=== PATIENT | female | born 1940 | race Caucasian/White ===

== ENCOUNTER → 2017-02-28 | Outpatient (CLI) | payer MEDICARE ==
[~2017-02-28] MED LIST: AMLO5 PO; BENA40TA PO; BUPR300T PO; CALC600T64 PO; CYCL1TAB29 PO; DENO60P SQ; DICY10CA12 PO; ESTR.625 PO; FLUT50SP EACH NARE; GABA100C4 PO; GETGO ROLLING W1 MI1; LOMO2.5T PO; METO-338 PO; METO50TA11 PO; PERC10TA27 PO; PROC10TA PO; RABE1TAB PO; TEMA30CA PO; VITA100064 PO; VOLT1GEL4
[2017-02-28 14:00] LABS: AUTOMATED NEUTROPHIL # 3.5 TH/MM3 (1.8-7.7); BASOPHIL # 0.1 TH/MM3 (0-0.2); BASOPHIL % 2.2 % (0.0-2.0); EOSINOPHIL # 0.1 TH/MM3 (0-0.4); EOSINOPHIL % 1.1 % (0.0-4.0); HEMATOCRIT 37.2 % (35.0-46.0); HEMO FLAGS DIFF FINAL; LYMPH % 34.3 % (9.0-44.0); LYMPHOCYTE # 2.2 TH/MM3 (1.0-4.8); MEAN CELL VOLUME 62.8 FL (80.0-100.0); MEAN CORPUSCULAR HEMOGLOBIN 19.3 PG (27.0-34.0); MEAN CORPUSCULAR HGB CONC 30.8 % (32.0-36.0); MONO % 8.6 % (0.0-8.0); NEUT % 53.8 % (16.0-70.0); PLATELET COUNT 300 TH/MM3 (150-450); RED BLOOD COUNT 5.92 MIL/MM3 (4.00-5.30); RED CELL DISTRIBUTION WIDTH 15.8 % (11.6-17.2); WHITE BLOOD COUNT 6.4 TH/MM3 (4.0-11.0)
[2017-02-28 14:06] LABS: BACTERIA, URINE OCC /hpf; BLOOD, URINE NEG (NEG); COMMENT (UR) CULT NOT INDICATED; CULTURE IF INDICATED CULT NOT INDICATED; GLUCOSE,URINE NEG (NEG); KETONE, URINE NEG (NEG); NITRITE,URINE NEG (NEG); SQUAMOUS EPITHELIAL CELL URINE <1 /hpf (0-5); URINE COLOR YELLOW (YELLW/STRAW)
[2017-02-28 14:11] LABS: APTT (PATIENT) 30.9 SEC (24.3-30.1); INTERNATIONAL NORMALIZED RATIO 0.9 RATIO
[2017-02-28 14:23] LABS: ALT (GPT) 21 U/L (10-53); ANION GAP 7 MEQ/L (5-15); AST (GOT) 13 U/L (15-37); BICARBONATE 28.1 MEQ/L (21.0-32.0); BLOOD UREA NITROGEN 16 MG/DL (7-18); CHLORIDE 105 MEQ/L (98-107); GLOMERULAR FILTRATION RATE 71 ML/MIN (>89); GLUCOSE,FASTING 84 MG/DL (74-99); POTASSIUM 3.8 MEQ/L (3.5-5.1); SODIUM (NA) 140 MEQ/L (136-145)
[2017-02-28 14:25] LABS: ALKALINE PHOSPHATASE 43 U/L (45-117); TOTAL BILIRUBIN ADULT 0.5 MG/DL (0.2-1.0)
--- NOTE | 2017-02-28 16:28 | RADRPT ---
EXAM DATE/TIME: 02/28/2017 14:01 [facility] COMPARISON: No previous studies available for comparison. INDICATIONS : Evaluate for pneumonia, pneumothorax, or communicable disease. Pre-op Lumbar surgery 03/07/2017. MEDICAL HISTORY : None. SURGICAL HISTORY : None. ENCOUNTER: Initial ACUITY: 1 day PAIN SCORE: 0/10 LOCATION: Bilateral chest FINDINGS: PA and lateral views of the chest demonstrate the lungs to be symmetrically aerated without evidence of mass, infiltrate or effusion. The cardiomediastinal contours are unremarkable. Degenerative beck es and scoliosis of the thoracolumbar spine are noted. CONCLUSION: No acute cardiopulmonary disease. Shravan Lamb MD on February 28, 2017 at 16:25 Board Certified Radiologist. This report was verified electronically.
== END ==
LOC: CPRE 13:02
PROVIDERS: ATTEND Neurological Surgery
DX: Z01.812 Encounter for preprocedural laboratory examination (principal); M51.36 Other intervertebral disc degeneration, lumbar region; M51.16 Intervertebral disc disorders with radiculopathy, lumbar region; M99.83 Other biomechanical lesions of lumbar region; M43.16 Spondylolisthesis, lumbar region; Z79.01 Long term (current) use of anticoagulants
CPT/HCPCS: 36415; 71020; 80053; 81001; 85025; 85610; 85730

== ENCOUNTER 2017-03-07 08:30 | Inpatient (IN) | payer MEDICARE ==
[~2017-03-07] VITALS: Ht 156.2 cm; Wt 66.5 kg
[~2017-03-07 08:30] MED LIST changes: -AMLO5 PO; -CYCL1TAB29 PO; -GABA100C4 PO; -GETGO ROLLING W1 MI1; -METO-338 PO; -VOLT1GEL4
[2017-03-13] MEDS ORDERED: VANCOMYCIN HCL 1000 MG ON-CALL/NS 250 ML IV SCH ×2 (06:45)
[2017-03-13] MEDS ORDERED: INSULIN HUMAN REGULAR 1,000 UNITS/10 ML VIAL SQ PRN (07:00)
[2017-03-13] MEDS ORDERED: CHLORHEXIDINE GLUCONATE 2 % 1 PACK (2 CLOTHS) TOPICAL PRN (07:00)
[2017-03-13] MEDS ORDERED: SODIUM CHLOR 0.9% 1000 ML INJ 1,000 ML IV SCH (07:00)
[2017-03-13] MEDS ORDERED: SODIUM CHLORID 0.9% 500 ML IV PRN (07:00)
[2017-03-13] MEDS ORDERED: POVIDONE IODINE 5% (ANTISEPSIS KIT) 4 APPLICATIONS EACH NARE PRN (07:00)
[2017-03-13] MEDS ORDERED: LACTATED RINGER'S 1000 ML IV PRN (07:00)
[2017-03-13] MEDS ORDERED: METOPROLOL TARTRATE 25 MG TAB PO PRN (07:00)
[2017-03-13] MEDS ORDERED: THROMBIN (TOPICAL) 5,000 UNIT VIAL ONE (07:13)
[2017-03-13] MEDS ORDERED: GELFOAM SIZE 100 ONE (07:13)
[2017-03-13] MEDS ORDERED: VANCOMYCIN HCL 1000 MG VIAL ONE (07:13)
[2017-03-13] MEDS ORDERED: BUPIVACAINE/EPINEPHRINE 0.5% PF 30 ML VIAL ONE (07:13)
[2017-03-13] MEDS ORDERED: ACETAMINOPHEN 1000 MG/100 ML 100 ML IV ONE (08:07)
[2017-03-13] MEDS ORDERED: DO NOT ADM ANY ANTICOAGULANT DRUGS PRN ×2 (11:50)
--- NOTE | 2017-03-13 11:59 | RADRPT ---
EXAM DATE/TIME: 03/13/2017 09:03 [facility] COMPARISON: No previous studies available for comparison. INDICATIONS : Post-op L4-L5 posterior lumbar fusion. MEDICAL HISTORY : None. SURGICAL HISTORY : None. ENCOUNTER: Initial ACUITY: 1 day PAIN SCORE: Non-responsive. LOCATION: Lumbar spine. CONCLUSION: Lateral fluoroscopic images during placement of rods and screws at L4-5 on the left. Intervertebral d isc device also seen L4-L5. Selvin Menezes MD on March 13, 2017 at 11:57 Board Certified Radiologist. This report was verified electronically.
--- NOTE | 2017-03-13 12:00 | RADRPT ---
EXAM DATE/TIME: 03/13/2017 09:03 [facility] COMPARISON: No previous studies available for comparison. INDICATIONS : L4-L5 posterior lumbar fusion. Level localization. MEDICAL HISTORY : None. SURGICAL HISTORY : None. ENCOUNTER: Initial ACUITY: 1 day PAIN SCORE: Non-responsive. LOCATION: Lumbar spine. CONCLUSION: Lateral fluoroscopic images demonstrates temporary probes posterior to L4 and L5 vertebral bodies. Selvin Menezes MD on March 13, 2017 at 11:58 Board Certified Radiologist. This report was verified electronically.
[2017-03-13] MEDS ORDERED: CYCLOBENZAPRINE HCL 10 MG TAB PO PRN (12:15)
[2017-03-13] MEDS ORDERED: diphenhydrAMINE HCL 50 MG/ML VIAL IV PUSH PRN (12:15)
[2017-03-13] MEDS ORDERED: RESP: ALBUTEROL 2.5 MG/3 ML NEB (PRN) NEB (12:15)
[2017-03-13] MEDS ORDERED: NALOXONE HCL 0.4 MG/ML AMP IV PUSH PRN (12:15)
[2017-03-13] MEDS ORDERED: MAGNESIUM HYDROXIDE SUSP 30 ML CUP PO PRN (12:15)
[2017-03-13] MEDS ORDERED: BISACODYL 10 MG SUPP RECTAL PRN (12:15)
[2017-03-13] MEDS ORDERED: PROMETHAZINE INJ 25 MG/ML VIAL IM PRN (12:15)
[2017-03-13] MEDS ORDERED: ALUMINUM/MAGNESIUM/SIMETH 30 ML CUP PO PRN (12:15)
[2017-03-13] MEDS ORDERED: MENTHOL LOZENGE BUCCAL PRN (12:15)
[2017-03-13] MEDS ORDERED: MAGNESIUM SULFATE INJ 2 GM in SODIUM CHLORIDE 0.9% INJ 100 ML IV PRN (12:15)
[2017-03-13] MEDS ORDERED: POTASSIUM CHLOR 20 MEQ PREMIX 100 ML IV PRN (12:15)
[2017-03-13] MEDS ORDERED: ACETAMINOPHEN 325 MG TAB PO PRN (12:15)
[2017-03-13] MEDS ORDERED: TEMAZEPAM 15 MG CAP PO PRN (12:15)
[2017-03-13] MEDS ORDERED: DICYCLOMINE HCL 10 MG CAP PO PRN (12:15)
[2017-03-13] MEDS ORDERED: SODIUM CHLORIDE 0.9% FLUSH 10 ML FLUSH IV FLUSH PRN (12:15)
--- NOTE | 2017-03-13 12:29 | PD.OP ---
cc: Balbir Gillette MD Operative Report Date of Surgery: Mar 13, 2017 Preoperative Diagnosis: Intractable low back pain with radiculopathy; severe L4-5 degenerative disc disease with disc protrusion and facet hypertrophy with a grade 1 spondylolisthesis Postoperative Diagnosis: Same Procedure: Lumbar L4-5 transforaminal interbody fusion; L4-5 decompressive laminectomy; L4- 5 pedicle screw fixation; L4-5 interbody cage placement; microsurgical technique Anesthesia: Gen. endotracheal by Kiran Carreon Surgeon: Chucho Osorio M.D. Drill Sharpener Operator(s): Tere Prabhakar Operation and Findings: Following initiation of general endotracheal anesthesia, the patient had a Chavez catheter placed along with sequential compression devices. A gram of vancomycin was administered intravenously and she was turned in a prone position on a James frame, on a Kuldeep table, and all pressure points adequately padded. The lumbosacral region was then prepped with Chloraprep and sterilely draped with Ioban along the usual sterile draping. A left paraspinal skin incision was then made extending from the L4-L5 level after infiltrating the skin with 0.5% Marcaine with epinephrine solution extending down through the fascia. The muscle fibers were split using avascular fatty plane and detached from the underlying facets, transverse process and lateral portion of lamina on the right side and a self-retaining retractor used for exposure. Intraoperative fluoroscopy was also used for level of confirmation along with microscope magnification for further dissection. There was significant facet and ligamentum flavum hypertrophy noted at the L4-5 levels. Left L4-5 facet was resected with a drill bit along with the lamina and there was severe foraminal and lateral recess stenosis from hypertrophied ligamentum flavum and facet which were decompressed bilaterally through the unilateral approach. There was significant disc height collapse along with disc protrusion and spondylolisthesis also leading to the foraminal stenosis. Epidural hemostasis was achieved with bipolar cautery and Gelfoam with thrombin. Subsequently entered into the disc space at the L4-5 level with a #15 blade and neris were used for discectomy. I then placed PEEK cage packed with local autograft bone and more local autograft bone was packed adjacent to the cage in interspace for added interbody fusion. With placement of the cage, I was able to distract the interspace and opened up the foramen further bilaterally. Subsequently in order to facilitate the fusion and provide stabilization, pedicle screw fixation was undertaken using Moosic spine screws on entry point at the left L4 -5 levels at the junction of the transverse process and facet. Subsequently using AP and lateral fluoroscopy tap and screw placement. The screws were then connected with a mayank and locked in place with caps. The construct appeared very secure at this point. The area was then copiously irrigated with Vancomycin solution and powder. The retractors were removed and the bipolar cautery used for hemostasis. The muscle fascia was then approximated using 2-0 Vicryl interrupted stitches and then 3-0 Vicryl subcuticular stitches also placed in interrupted fashion. The final skin closure was completed with Mastisol and Steri-Strips. A sterile dressing was then applied. The patient then turned in supine position, extubated and taken to recovery room. There were no intraoperative complications. All sponge and needle counts were correct at the end of procedure. Estimated blood loss about 50 ml. Chucho Osorio MD Mar 13, 2017 12:29
[2017-03-13] MEDS: MORPHINE SULFATE 30 MG/30 ML PCA IV SCH (12:37)
[2017-03-13] MEDS: NS + KCL 20 MEQ INJ 1,000 ML IV SCH (12:38)
[2017-03-13 12:52] LABS: HEMATOCRIT 33.3 % (35.0-46.0); MEAN CELL VOLUME 62.3 FL (80.0-100.0); MEAN CORPUSCULAR HGB CONC 32.1 % (32.0-36.0); PLATELET COUNT 227 TH/MM3 (150-450); RED BLOOD COUNT 5.35 MIL/MM3 (4.00-5.30); RED CELL DISTRIBUTION WIDTH 15.8 % (11.6-17.2); REVIEW FLAG FINAL; WHITE BLOOD COUNT 5.5 TH/MM3 (4.0-11.0)
[2017-03-13] MEDS ORDERED: CALCIUM GLUCONATE INJ 1 GM in SODIUM CHLORIDE 0.9% INJ 100 ML IV PRN (13:00)
[2017-03-13] MEDS ORDERED: NEOSTIGMINE 3 MG/3 ML SYR IV ONE (13:10)
[2017-03-13] MEDS ORDERED: MORPHINE SULFATE 4 MG/ML INJ IV ONE (13:10)
[2017-03-13] MEDS ORDERED: ROCURONIUM INJ 50 MG/5 ML SYRINGE IV PUSH ONE (13:10)
[2017-03-13] MEDS ORDERED: LACTATED RINGER'S 1000 ML INJ 1,000 ML IV ONE (13:10)
[2017-03-13] MEDS ORDERED: MIDAZOLAM HCL 2 MG/2 ML VIAL IV ONE (13:10)
[2017-03-13] MEDS ORDERED: ONDANSETRON HCL 4 MG/2 ML VIAL IV PUSH ONE (13:10)
[2017-03-13] MEDS ORDERED: LIDOCAINE HCL 1% PF 5 ML AMPULE OTHER ONE (13:10)
[2017-03-13] MEDS ORDERED: GLYCOPYRROLATE 1 MG/5 ML SYRINGE IV PUSH ONE (13:10)
[2017-03-13] MEDS ORDERED: DEXAMETHASONE SOD PHOS 4 MG/ML VIAL IV ONE (13:10)
[2017-03-13] MEDS ORDERED: PROPOFOL 200 MG/20 ML AMP IV ONE (13:10)
[2017-03-13 13:21] LABS: BICARBONATE 30.3 MEQ/L (21.0-32.0)
[2017-03-13] MEDS ORDERED: *LABETALOL HCL 100 MG/20 ML VIAL PERIprocedural Use ONLY ONE (13:29)
[2017-03-13 14:15] VITALS: BP 138/64; PULSE 82; RESP 16; TEMP 98.3; O2SAT 95
[2017-03-13] MEDS: PCA - TOTAL MG MORPHINE DELIVERED PER SHIFT SCH ×2 (15:09→22:00)
[2017-03-13] MEDS: oxyCODONE/ACETAMINOPHEN 10 MG/325 MG TAB PO PRN (18:12)
[2017-03-13] MEDS: VANCOMYCIN INJ 1,000 MG in SODIUM CHLOR 0.9% 250 ML INJ 250 ML IV SCH (18:58)
[2017-03-13 20:30] VITALS: BP 110/57; PULSE 96; RESP 16; TEMP 98.3; O2SAT 96
[2017-03-13] MEDS: SODIUM CHLORIDE 0.9% FLUSH 10 ML FLUSH IV FLUSH SCH (21:00)
[2017-03-13] MEDS: DOCUSATE SODIUM 100 MG CAP PO SCH ×2 (21:00→22:32)
[2017-03-13] MEDS: FLUTICASONE PROPIONATE 50 MCG/ACT 16 GM NASAL SPRAY EACH NARE SCH (21:00)
[2017-03-13] MEDS: METOPROLOL SUCCINATE 50 MG EXTENDED RELEASE TAB PO SCH (22:32)
[2017-03-13 23:57] VITALS: BP 112/59; PULSE 86; RESP 16; TEMP 98.7; O2SAT 96
[2017-03-14] MEDS: NS + KCL 20 MEQ INJ 1,000 ML IV SCH (00:39)
[2017-03-14] MEDS: MORPHINE SULFATE 30 MG/30 ML PCA IV SCH (03:49)
[2017-03-14 04:00] VITALS: BP 131/62; PULSE 77; RESP 18; TEMP 98.9; O2SAT 94
[2017-03-14] MEDS: PCA - TOTAL MG MORPHINE DELIVERED PER SHIFT SCH ×2 (06:00→14:00)
[2017-03-14] MEDS: VANCOMYCIN INJ 1,000 MG in SODIUM CHLOR 0.9% 250 ML INJ 250 ML IV SCH (06:02)
[2017-03-14 08:49] VITALS: BP 125/67; PULSE 76; RESP 20; TEMP 99.3; O2SAT 90
[2017-03-14] MEDS ORDERED: buPROPion HCL 150 MG EXTENDED RELEASE TAB PO SCH (09:00)
--- NOTE | 2017-03-14 09:05 | HHI.NSPN ---
(Selvin Resendiz) History Chief Complaint: Incisional back pain radiating into the left lateral leg. (Selvin Resendiz) Interval History 03/14/17: Pt s/p L4/L5 TLIF with cage and pedicle screw fixation on 03/13/17. Complains of incisional back pain controlled with GOLF COURSE KEEPER. Pt with some pain radiating into the left lateral leg to the ankle. Pt drinking water well. Looking forward to PT today. (Selvin Resendiz) Review of Systems General: Negative for: fever, chills, insomnia Respiratory: Negative for: shortness of breath, cough, sputum Cardiovascular: Negative for: chest pain Gastrointestinal: Negative for: nausea, vomitting, diarrhea, constipation ( Selvin Resendiz) Exam Results Vital Signs Date Time Temp Pulse Resp B/P (MAP) Pulse Ox O2 Delivery O2 Flow Rate FiO2 03/14/17 08:49 99.3 76 20 125/67 (86) 90 03/13/17 21:59 Nasal Cannula 2.00 Intake and Output 03/14/17 03/14/17 03/15/17 08:00 16:00 00:00 Intake Total 250 ml 1427 ml Balance 250 ml 1427 ml (Selvin Resendiz) Physical Examination Resp: CTA bilaterally Heart: NSR no murmurs Abd: Soft positive bs Skin: Pt log rolled. Incision clean and dry. No signs of infection or complication. New bandage placed. Muscle: Moves LEs with good strength. Neuro: Pt awake and alert. Follows commands well. Speech clear and appropriate. (Selvin Resendiz) Lab, Micro, Other Results Last Impressions Lumbar Spine X-Ray 03/13/17 0000 Signed Impressions: Service Date/Time: Monday, March 13, 2017 09:03 - CONCLUSION: Lateral fluoroscopic images during placement of rods and screws at L4-5 on the left. Intervertebral disc device also seen L4-L5. Selvin Menezes MD Laboratory Tests Test 03/13/17 12:42 White Blood Count 5.5 TH/MM3 Red Blood Count 5.35 MIL/MM3 Hemoglobin 10.7 GM/DL Hematocrit 33.3 % Mean Corpuscular Volume 62.3 FL Mean Corpuscular Hemoglobin 20.0 PG Mean Corpuscular Hemoglobin Concent 32.1 % Red Cell Distribution Width 15.8 % Platelet Count 227 TH/MM3 Mean Platelet Volume 7.8 FL Blood Urea Nitrogen 14 MG/DL Creatinine 0.83 MG/DL Random Glucose 106 MG/DL Calcium Level 8.6 MG/DL Sodium Level 142 MEQ/L Potassium Level 4.0 MEQ/L Chloride Level 107 MEQ/L Carbon Dioxide Level 30.3 MEQ/L Anion Gap 5 MEQ/L Estimat Glomerular Filtration Rate 67 ML/MIN 03/14/17 03/14/17 03/15/17 15:00 23:00 07:00 Intake Total 1677 ml Balance 1677 ml IV Total 1677 ml (Selvin Resendiz) Medical Decision Making Impression and Plan A: 76 y/o FM s/p L4/L5 TLIF with cage and pedicle screw fixation. P: Continue with pain control with GOLF COURSE KEEPER Decrease IVF. PT (Selvin Resendiz) Attending Statement The exam, history, and the medical decision-making described in the above note were completed with the assistance of the mid-level provider. I reviewed and agree with the findings presented. I attest that I had a [id number] encounter with the patient on the same day, and personally performed and documented my assessment and findings in the medical record. She has been unable to void since Chavez was removed this morning and we'll replace the Chavez. Pain controlled with GOLF COURSE KEEPER and continue increasing activity status as tolerated. (Chucho Osorio MD) Selvin Resendiz Mar 14, 2017 09:05 Chucho Osorio MD Mar 14, 2017 16:24
[2017-03-14] MEDS: FLUTICASONE PROPIONATE 50 MCG/ACT 16 GM NASAL SPRAY EACH NARE SCH ×2 (09:43→23:08)
[2017-03-14] MEDS: CALCIUM/VITAMIN D 250 MG/125 U TAB PO SCH (09:44)
[2017-03-14] MEDS: PANTOPRAZOLE SOD 40 MG DELAYED RELEASE TAB PO SCH (09:44)
[2017-03-14] MEDS: DOCUSATE SODIUM 100 MG CAP PO SCH ×2 (09:45→21:00)
[2017-03-14] MEDS: buPROPion HCL 150 MG SUSTAINED RELEASE TAB PO SCH ×2 (09:45→23:05)
[2017-03-14] MEDS: LISINOPRIL 20 MG TAB PO SCH (09:45)
[2017-03-14] MEDS: SODIUM CHLORIDE 0.9% FLUSH 10 ML FLUSH IV FLUSH SCH ×2 (09:46→21:00)
[2017-03-14] MEDS: oxyCODONE/ACETAMINOPHEN 10 MG/325 MG TAB PO PRN ×3 (09:46→23:07)
[2017-03-14] MEDS: CHOLECALCIFEROL (VIT D3) 1000 UNIT TAB PO SCH (09:51)
[2017-03-14 12:12] VITALS: BP 110/66; PULSE 82; RESP 20; TEMP 98.2; O2SAT 98
[2017-03-14] MEDS: ONDANSETRON HCL 4 MG/2 ML VIAL IV PRN (14:33)
[2017-03-14 16:19] VITALS: BP 136/67; PULSE 74; RESP 20; TEMP 99; O2SAT 94
[2017-03-14 20:00] VITALS: BP 186/89; PULSE 96; RESP 20; TEMP 97.3; O2SAT 94
[2017-03-14 20:09] VITALS: O2SAT 94
[2017-03-14] MEDS: METOPROLOL SUCCINATE 50 MG EXTENDED RELEASE TAB PO SCH (23:05)
[2017-03-15] VITALS (8 sets, daily range): BP systolic 135–180; BP diastolic 61–83; PULSE 78–95; RESP 17–20; TEMP 98.7–100.2; O2SAT 90–98
[2017-03-15] MEDS: PCA - TOTAL MG MORPHINE DELIVERED PER SHIFT SCH (06:00)
[2017-03-15] MEDS: NS + KCL 20 MEQ INJ 1,000 ML IV SCH (06:46)
[2017-03-15] MEDS ORDERED: MORPHINE SULFATE 4 MG/ML INJ IV PUSH PRN (08:45)
[2017-03-15] MEDS: SODIUM CHLORIDE 0.9% FLUSH 10 ML FLUSH IV FLUSH SCH ×2 (09:00→23:16)
[2017-03-15] MEDS: ONDANSETRON HCL 4 MG/2 ML VIAL IV PRN (09:40)
[2017-03-15] MEDS: LISINOPRIL 20 MG TAB PO SCH (09:41)
[2017-03-15] MEDS: CALCIUM/VITAMIN D 250 MG/125 U TAB PO SCH (09:41)
[2017-03-15] MEDS: DOCUSATE SODIUM 100 MG CAP PO SCH ×2 (09:41→21:00)
[2017-03-15] MEDS: PANTOPRAZOLE SOD 40 MG DELAYED RELEASE TAB PO SCH (09:41)
[2017-03-15] MEDS: buPROPion HCL 150 MG SUSTAINED RELEASE TAB PO SCH ×2 (09:41→23:15)
[2017-03-15] MEDS: CHOLECALCIFEROL (VIT D3) 1000 UNIT TAB PO SCH (09:41)
[2017-03-15] MEDS: FLUTICASONE PROPIONATE 50 MCG/ACT 16 GM NASAL SPRAY EACH NARE SCH ×2 (09:43→23:16)
--- NOTE | 2017-03-15 09:46 | HHI.NSPN ---
(Selvin Resendiz) History Chief Complaint: Incisional back pain radiating into the left lateral leg. (Selvin Resendiz) Interval History 03/14/17: Pt s/p L4/L5 TLIF with cage and pedicle screw fixation on 03/13/17. Complains of incisional back pain controlled with FREEDOM OF INFORMATION OFFICER. Pt with some pain radiating into the left lateral leg to the ankle. Pt drinking water well. Looking forward to PT today. 03/15/17: Patient complains of incisional pain and pain in her left leg. She states that she has pain mostly in the lateral aspect but is now having pain in the posterior aspect also. Her Chavez catheter was placed back in secondary to her being unable to void. She states that the Percocet causing nausea and the FREEDOM OF INFORMATION OFFICER does not. She is trying to use antiemetics to help with her nausea. (Slevin Resendiz) Review of Systems General: Negative for: fever, chills, insomnia Respiratory: Negative for: shortness of breath, cough, sputum Cardiovascular: Negative for: chest pain Gastrointestinal: Positive for: nausea (from Percocet.), Negative for: vomitting, diarrhea, constipation (Selvin Resendiz) Exam Results Vital Signs Date Time Temp Pulse Resp B/P (MAP) Pulse Ox O2 Delivery O2 Flow Rate FiO2 03/15/17 08:48 98 03/15/17 07:30 99.0 80 20 148/73 (98) 03/14/17 20:09 21 03/13/17 21:59 Nasal Cannula 2.00 Intake and Output 03/15/17 03/15/17 03/16/17 08:00 16:00 00:00 Intake Total 240 ml Output Total 1100 ml Balance -860 ml (Selvin Resendiz) Physical Examination Resp: CTA bilaterally Heart: NSR no murmurs Abd: Soft positive bs Skin: No cyanosis or erythema. Muscle: Moves LEs with good strength. Neuro: Pt awake and alert. Follows commands well. Speech clear and appropriate. (Selvin Resendiz) Lab, Micro, Other Results Last Impressions Lumbar Spine X-Ray 03/13/17 0000 Signed Impressions: Service Date/Time: Monday, March 13, 2017 09:03 - CONCLUSION: Lateral fluoroscopic images during placement of rods and screws at L4-5 on the left. Intervertebral disc device also seen L4-L5. Selvin Menezes MD (Selvin Resendiz) Medical Decision Making Impression and Plan A: 76 y/o FM s/p L4/L5 TLIF with cage and pedicle screw fixation. P: Continue with pain control with FREEDOM OF INFORMATION OFFICER PT (Selvin Resendiz) Impression and Plan The exam, history, and the medical decision-making described in the above note were completed with the assistance of the mid-level provider. I reviewed and agree with the findings presented. I attest that I had a [id number] encounter with the patient on the same day, and personally performed and documented my assessment and findings in the medical record. Discontinue FREEDOM OF INFORMATION OFFICER and morphine for breakthrough pain along with Lortab. Patient wants to go to a senior living home for rehabilitation and we will plan on placement tomorrow if bed available. (Chucho Osorio MD) Selvin Resendiz Mar 15, 2017 09:46 Chucho Osorio MD Mar 15, 2017 15:19
[2017-03-15] MEDS: cloNIDine HCL 0.1 MG TAB PO PRN (11:49)
[2017-03-15] MEDS: oxyCODONE/ACETAMINOPHEN 10 MG/325 MG TAB PO PRN ×3 (12:26→23:15)
[2017-03-15] MEDS ORDERED: PERC10TA27 PO (16:16)
[2017-03-15] MEDS ORDERED: CYCL1TAB29 PO (16:16)
[2017-03-15] MEDS: METOPROLOL SUCCINATE 50 MG EXTENDED RELEASE TAB PO SCH (23:15)
[2017-03-16] VITALS (8 sets, daily range): BP systolic 137–213; BP diastolic 67–101; PULSE 75–103; RESP 16–20; TEMP 98–99.5; O2SAT 92–95
[2017-03-16] MEDS: oxyCODONE/ACETAMINOPHEN 10 MG/325 MG TAB PO PRN ×4 (04:56→23:05)
[2017-03-16] MEDS: cloNIDine HCL 0.1 MG TAB PO PRN ×2 (04:56→12:40)
[2017-03-16] MEDS: CALCIUM/VITAMIN D 250 MG/125 U TAB PO SCH (09:00)
[2017-03-16] MEDS: FLUTICASONE PROPIONATE 50 MCG/ACT 16 GM NASAL SPRAY EACH NARE SCH ×2 (10:21→21:00)
[2017-03-16] MEDS: LISINOPRIL 20 MG TAB PO SCH (10:22)
[2017-03-16] MEDS: PANTOPRAZOLE SOD 40 MG DELAYED RELEASE TAB PO SCH (10:23)
[2017-03-16] MEDS: CHOLECALCIFEROL (VIT D3) 1000 UNIT TAB PO SCH (10:23)
[2017-03-16] MEDS: DOCUSATE SODIUM 100 MG CAP PO SCH ×2 (10:25→21:00)
[2017-03-16] MEDS: SODIUM CHLORIDE 0.9% FLUSH 10 ML FLUSH IV FLUSH SCH ×2 (10:25→21:00)
[2017-03-16] MEDS: buPROPion HCL 150 MG SUSTAINED RELEASE TAB PO SCH ×2 (10:25→23:03)
[2017-03-16] MEDS: DIPHENOXYLATE/ATROPINE 2.5 MG/0.025 MG TAB PO PRN (18:07)
[2017-03-16] MEDS: METOPROLOL SUCCINATE 50 MG EXTENDED RELEASE TAB PO SCH (23:04)
[2017-03-17] VITALS (7 sets, daily range): BP systolic 140–178; BP diastolic 66–90; PULSE 74–93; RESP 15–20; TEMP 97.7–98.7; O2SAT 93–98
[2017-03-17] MEDS: cloNIDine HCL 0.1 MG TAB PO PRN ×2 (04:37→22:50)
[2017-03-17] MEDS: oxyCODONE/ACETAMINOPHEN 10 MG/325 MG TAB PO PRN ×5 (04:37→22:50)
[2017-03-17] MEDS: FLUTICASONE PROPIONATE 50 MCG/ACT 16 GM NASAL SPRAY EACH NARE SCH ×2 (08:53→21:00)
[2017-03-17] MEDS: CHOLECALCIFEROL (VIT D3) 1000 UNIT TAB PO SCH (08:54)
[2017-03-17] MEDS: DOCUSATE SODIUM 100 MG CAP PO SCH ×2 (08:55→22:50)
[2017-03-17] MEDS: CALCIUM/VITAMIN D 250 MG/125 U TAB PO SCH (08:55)
[2017-03-17] MEDS: buPROPion HCL 150 MG SUSTAINED RELEASE TAB PO SCH ×2 (08:55→22:49)
[2017-03-17] MEDS: PANTOPRAZOLE SOD 40 MG DELAYED RELEASE TAB PO SCH (08:55)
[2017-03-17] MEDS: LISINOPRIL 20 MG TAB PO SCH (08:57)
[2017-03-17] MEDS: SODIUM CHLORIDE 0.9% FLUSH 10 ML FLUSH IV FLUSH SCH ×2 (08:58→21:00)
--- NOTE | 2017-03-17 12:18 | HHI.NSPN ---
(Yesika Gamino) Note Status Status: Progress Note (Yesika Gamino) Interval History Interval History 03/14/17: Pt s/p L4/L5 TLIF with cage and pedicle screw fixation on 03/13/17. Complains of incisional back pain controlled with CUSTOMS AND BORDER PROTECTION INSPECTOR. Pt with some pain radiating into the left lateral leg to the ankle. Pt drinking water well. Looking forward to PT today. 03/15/17: Patient complains of incisional pain and pain in her left leg. She states that she has pain mostly in the lateral aspect but is now having pain in the posterior aspect also. Her Chavez catheter was placed back in secondary to her being unable to void. She states that the Percocet causing nausea and the CUSTOMS AND BORDER PROTECTION INSPECTOR does not. She is trying to use antiemetics to help with her nausea. 03/17: feeling better this morning, still feels generally weak. awaiting rehab placement. (Yesika Gamino) Labs, Micro, & Vital Signs Results Date Time Temp Pulse Resp B/P (MAP) Pulse Ox O2 Delivery O2 Flow Rate FiO2 03/17/17 08:00 97.7 83 15 147/77 (100) 95 03/17/17 06:15 165/82 (109) 03/17/17 05:12 98.6 84 20 178/85 (116) 93 03/17/17 00:56 98.7 93 20 140/66 (90) 95 03/16/17 20:56 98.9 94 20 145/82 (103) 95 03/16/17 18:10 153/74 (100) 03/16/17 16:00 99.5 96 16 187/87 (120) 95 03/16/17 12:42 75 137/67 (90) 92 Constitutional Vital Signs Date Time Temp Pulse Resp B/P (MAP) Pulse Ox O2 Delivery O2 Flow Rate FiO2 03/17/17 08:00 97.7 83 15 147/77 (100) 95 03/17/17 06:15 165/82 (109) 03/17/17 05:12 98.6 84 20 178/85 (116) 93 03/17/17 00:56 98.7 93 20 140/66 (90) 95 03/16/17 20:56 98.9 94 20 145/82 (103) 95 03/16/17 18:10 153/74 (100) 03/16/17 16:00 99.5 96 16 187/87 (120) 95 03/16/17 12:42 75 137/67 (90) 92 (Yesika Gamino) Physical Exam Alert, oriented x 3. Speech is fluent. Sitting up in chair. Motor: 5/5 in both iliopsoas, quads, plantarflexion, dorsiflexion and EHL Sensory: intact to light touch in LE's Heart: NSR Lungs: clear (Yesika Gamino) Medications Current Medications Current Medications Medications (Trade) Dose Ordered Sig/Shauna Route PRN Reason Start Time Stop Time Status Last Admin Dose Admin Cholecalciferol (Vitamin D3) 5,000 units DAILY PO 03/14/17 09:00 03/17/17 08:54 Dicyclomine HCl (Bentyl) 10 mg TID PRN PO IBS 03/13/17 12:15 Diphenoxylate HCl/ Atropine (Lomotil Tab) 2 tab Q6H PRN PO DIARRHEA 03/13/17 12:15 03/16/17 18:07 Fluticasone Propionate (Flonase José Spr) 1 spray BID EACH NARE 03/13/17 21:00 03/17/17 08:53 Metoprolol Succinate (Toprol Xl) 50 mg HS PO 03/13/17 21:00 03/16/17 23:04 Pantoprazole Sodium (Protonix) 40 mg DAILY PO 03/14/17 09:00 03/17/17 08:55 Temazepam (Restoril) 30 mg HS PRN PO INSOMNIA 03/13/17 12:15 Lisinopril (Prinivil) 40 mg DAILY PO 03/14/17 09:00 03/17/17 08:57 Calcium/Vitamin D (Oscal-D 250-125) 500 mg DAILY PO 03/14/17 09:00 03/17/17 08:55 Naloxone HCl (Narcan Inj) 0.4 mg UNSCH PRN IV PUSH RESPIRATORY RATE LESS THAN 10 03/13/17 12:15 Diphenhydramine HCl (Benadryl Inj) 25 mg Q6H PRN IV PUSH ITCHING 03/13/17 12:15 Sodium Chloride (NS Flush) 2 ml UNSCH PRN IV FLUSH FLUSH AFTER USING IV ACCESS 03/13/17 12:15 Sodium Chloride (NS Flush) 2 ml BID IV FLUSH 03/13/17 21:00 03/17/17 08:58 Bisacodyl (Dulcolax Supp) 10 mg DAILY PRN RECTAL CONSTIPATION if MOM ineffectiv 03/13/17 12:15 Docusate Sodium (Colace) 100 mg BID PO 03/13/17 21:00 03/16/17 10:25 Magnesium Hydroxide (Milk Of Magnesia Liq) 30 ml DAILY PRN PO CONSTIPATION 03/13/17 12:15 Al Hydrox/Mg Hydrox/Simethicone (Mag-Al Plus Susp Liq) 30 ml Q6H PRN PO DYSPEPSIA 03/13/17 12:15 Ondansetron HCl (Zofran Inj) 4 mg Q6H PRN IV NAUSEA OR VOMITING 03/13/17 12:15 03/15/17 09:40 Promethazine HCl (Phenergan Inj) 25 mg Q4H PRN IM NAUSEA OR VOMITING 03/13/17 12:15 03/15/17 11:49 Calcium Gluconate 1 gm/Sodium Chloride 110 ml @ 110 mls/hr UNSCH PRN IV SEE LABEL COMMENTS 03/13/17 13:00 Potassium Chloride 100 ml @ 50 mls/hr UNSCH PRN IV POTASSIUM LESS THAN 4 03/13/17 12:15 Magnesium Sulfate 2 gm/Sodium Chloride 104 ml @ 100 mls/hr UNSCH PRN IV MAGNESIUM LESS THAN 2 03/13/17 12:15 Cyclobenzaprine HCl (Flexeril) 10 mg Q8H PRN PO MUSCLE SPASM 03/13/17 12:15 Clonidine (Catapres) 0.1 mg Q6H PRN PO SYS BP GREATER THAN 170 MMHG 03/13/17 12:15 03/17/17 04:37 Acetaminophen (Tylenol) 650 mg Q4H PRN PO TEMPERATURE > 101.5 F 03/13/17 12:15 Menthol (Rolfe Jordan) 1 lozenge UNSCH PRN BUCCAL SORE THROAT 03/13/17 12:15 Albuterol Sulfate (Albuterol Neb) 2.5 mg Q4HR NEB PRN NEB WHEEZING 03/13/17 12:15 Oxycodone/ Acetaminophen (Percocet 10-325 Mg) 1 tab Q4H PRN PO pain 2-6 03/13/17 12:15 03/14/17 09:46 Oxycodone/ Acetaminophen (Percocet 10-325 Mg) 2 tab Q4H PRN PO pain>6 03/13/17 12:15 03/17/17 09:42 Bupropion HCl (Wellbutrin Sr) 150 mg BID PO 03/14/17 09:00 03/17/17 08:55 Morphine Sulfate (Morphine Inj) 4 mg Q3H PRN IV PUSH breakthrough pain>6 03/15/17 08:45 (Yesika Gamino) Medical Decision Making MDM Remarks 76 y/o FM s/p L4/L5 TLIF with cage and pedicle screw fixation. (Yesika Gamino) Plan Plan Remarks cont current care, surgical pain improving, dc to SNF when bed available (Yesika Gamino) Attending Statement The exam, history, and the medical decision-making described in the above note were completed with the assistance of the mid-level provider. I reviewed and agree with the findings presented. I attest that I had a [id number] encounter with the patient on the same day, and personally performed and documented my assessment and findings in the medical record. (Garcia Hawthorne MD) Yesika Gamino Mar 17, 2017 12:18 Garcia Hawthorne MD Mar 17, 2017 22:36
[2017-03-17] MEDS: DIPHENOXYLATE/ATROPINE 2.5 MG/0.025 MG TAB PO PRN (14:01)
[2017-03-17] MEDS: METOPROLOL SUCCINATE 50 MG EXTENDED RELEASE TAB PO SCH (22:49)
[2017-03-18] VITALS (7 sets, daily range): BP systolic 126–190; BP diastolic 72–86; PULSE 71–94; RESP 16–18; TEMP 97.3–99.1; O2SAT 95–98
[2017-03-18] MEDS: oxyCODONE/ACETAMINOPHEN 10 MG/325 MG TAB PO PRN ×5 (03:28→21:18)
[2017-03-18] MEDS: FLUTICASONE PROPIONATE 50 MCG/ACT 16 GM NASAL SPRAY EACH NARE SCH ×2 (08:49→21:19)
[2017-03-18] MEDS: CHOLECALCIFEROL (VIT D3) 1000 UNIT TAB PO SCH (08:49)
[2017-03-18] MEDS: SODIUM CHLORIDE 0.9% FLUSH 10 ML FLUSH IV FLUSH SCH ×2 (08:49→21:00)
[2017-03-18] MEDS: buPROPion HCL 150 MG SUSTAINED RELEASE TAB PO SCH ×2 (08:51→21:18)
[2017-03-18] MEDS: PANTOPRAZOLE SOD 40 MG DELAYED RELEASE TAB PO SCH (08:51)
[2017-03-18] MEDS: LISINOPRIL 20 MG TAB PO SCH (08:51)
[2017-03-18] MEDS: CALCIUM/VITAMIN D 250 MG/125 U TAB PO SCH (08:52)
[2017-03-18] MEDS: DOCUSATE SODIUM 100 MG CAP PO SCH ×2 (08:57→21:18)
--- NOTE | 2017-03-18 11:09 | HHI.NSPN ---
(Yesika Gamino) Note Status Status: Progress Note (Yesika Gamino) Interval History Interval History 03/14/17: Pt s/p L4/L5 TLIF with cage and pedicle screw fixation on 03/13/17. Complains of incisional back pain controlled with INDUSTRIAL RELATIONS REPRESENTATIVE. Pt with some pain radiating into the left lateral leg to the ankle. Pt drinking water well. Looking forward to PT today. 03/15/17: Patient complains of incisional pain and pain in her left leg. She states that she has pain mostly in the lateral aspect but is now having pain in the posterior aspect also. Her Chavez catheter was placed back in secondary to her being unable to void. She states that the Percocet causing nausea and the INDUSTRIAL RELATIONS REPRESENTATIVE does not. She is trying to use antiemetics to help with her nausea. 03/17: feeling better this morning, still feels generally weak. awaiting rehab placement. 03/18: blood pressure 190/83 this am, reports her family physician is Dr. Gillette who manages her blood pressure and would like his evaluation for her uncontrolled hypertension. (Yesika Gamino) Labs, Micro, & Vital Signs Results Date Time Temp Pulse Resp B/P (MAP) Pulse Ox O2 Delivery O2 Flow Rate FiO2 03/18/17 08:00 97.4 71 18 190/83 (118) 96 03/18/17 04:15 98.9 72 18 158/77 (104) 95 03/18/17 00:15 97.8 79 18 126/72 (90) 96 03/17/17 20:45 98.7 93 17 172/90 (117) 97 03/17/17 16:00 98.6 74 17 142/68 (92) 97 03/17/17 12:00 98.3 78 18 150/72 (98) 98 Constitutional Vital Signs Date Time Temp Pulse Resp B/P (MAP) Pulse Ox O2 Delivery O2 Flow Rate FiO2 03/18/17 08:00 97.4 71 18 190/83 (118) 96 03/18/17 04:15 98.9 72 18 158/77 (104) 95 03/18/17 00:15 97.8 79 18 126/72 (90) 96 03/17/17 20:45 98.7 93 17 172/90 (117) 97 03/17/17 16:00 98.6 74 17 142/68 (92) 97 03/17/17 12:00 98.3 78 18 150/72 (98) 98 (Yesika aGmino) Physical Exam Alert, oriented x 3. Speech is appropriate. Cognition intact. Currently sitting in toilet in bathroom. Motor: moving all four extremities well. Lumbar brace on. (Yesika Gamino) Medications Current Medications Current Medications Medications (Trade) Dose Ordered Sig/Shauna Route PRN Reason Start Time Stop Time Status Last Admin Dose Admin Cholecalciferol (Vitamin D3) 5,000 units DAILY PO 03/14/17 09:00 03/18/17 08:49 Dicyclomine HCl (Bentyl) 10 mg TID PRN PO IBS 03/13/17 12:15 Diphenoxylate HCl/ Atropine (Lomotil Tab) 2 tab Q6H PRN PO DIARRHEA 03/13/17 12:15 03/17/17 14:01 Fluticasone Propionate (Flonase José Spr) 1 spray BID EACH NARE 03/13/17 21:00 03/18/17 08:49 Metoprolol Succinate (Toprol Xl) 50 mg HS PO 03/13/17 21:00 03/17/17 22:49 Pantoprazole Sodium (Protonix) 40 mg DAILY PO 03/14/17 09:00 03/18/17 08:51 Temazepam (Restoril) 30 mg HS PRN PO INSOMNIA 03/13/17 12:15 03/17/17 22:50 Lisinopril (Prinivil) 40 mg DAILY PO 03/14/17 09:00 03/18/17 08:51 Calcium/Vitamin D (Oscal-D 250-125) 500 mg DAILY PO 03/14/17 09:00 03/18/17 08:52 Naloxone HCl (Narcan Inj) 0.4 mg UNSCH PRN IV PUSH RESPIRATORY RATE LESS THAN 10 03/13/17 12:15 Diphenhydramine HCl (Benadryl Inj) 25 mg Q6H PRN IV PUSH ITCHING 03/13/17 12:15 Sodium Chloride (NS Flush) 2 ml UNSCH PRN IV FLUSH FLUSH AFTER USING IV ACCESS 03/13/17 12:15 Sodium Chloride (NS Flush) 2 ml BID IV FLUSH 03/13/17 21:00 03/18/17 08:49 Bisacodyl (Dulcolax Supp) 10 mg DAILY PRN RECTAL CONSTIPATION if MOM ineffectiv 03/13/17 12:15 Docusate Sodium (Colace) 100 mg BID PO 03/13/17 21:00 03/17/17 22:50 Magnesium Hydroxide (Milk Of Magnesia Liq) 30 ml DAILY PRN PO CONSTIPATION 03/13/17 12:15 Al Hydrox/Mg Hydrox/Simethicone (Mag-Al Plus Susp Liq) 30 ml Q6H PRN PO DYSPEPSIA 03/13/17 12:15 Ondansetron HCl (Zofran Inj) 4 mg Q6H PRN IV NAUSEA OR VOMITING 03/13/17 12:15 03/15/17 09:40 Promethazine HCl (Phenergan Inj) 25 mg Q4H PRN IM NAUSEA OR VOMITING 03/13/17 12:15 03/15/17 11:49 Calcium Gluconate 1 gm/Sodium Chloride 110 ml @ 110 mls/hr UNSCH PRN IV SEE LABEL COMMENTS 03/13/17 13:00 Potassium Chloride 100 ml @ 50 mls/hr UNSCH PRN IV POTASSIUM LESS THAN 4 03/13/17 12:15 Magnesium Sulfate 2 gm/Sodium Chloride 104 ml @ 100 mls/hr UNSCH PRN IV MAGNESIUM LESS THAN 2 03/13/17 12:15 Cyclobenzaprine HCl (Flexeril) 10 mg Q8H PRN PO MUSCLE SPASM 03/13/17 12:15 Clonidine (Catapres) 0.1 mg Q6H PRN PO SYS BP GREATER THAN 170 MMHG 03/13/17 12:15 03/17/17 22:50 Acetaminophen (Tylenol) 650 mg Q4H PRN PO TEMPERATURE > 101.5 F 03/13/17 12:15 Menthol ([place]) 1 lozenge UNSCH PRN BUCCAL SORE THROAT 03/13/17 12:15 Albuterol Sulfate (Albuterol Neb) 2.5 mg Q4HR NEB PRN NEB WHEEZING 03/13/17 12:15 Oxycodone/ Acetaminophen (Percocet 10-325 Mg) 1 tab Q4H PRN PO pain 2-6 03/13/17 12:15 03/14/17 09:46 Oxycodone/ Acetaminophen (Percocet 10-325 Mg) 2 tab Q4H PRN PO pain>6 03/13/17 12:15 03/18/17 08:52 Bupropion HCl (Wellbutrin Sr) 150 mg BID PO 03/14/17 09:00 03/18/17 08:51 Morphine Sulfate (Morphine Inj) 4 mg Q3H PRN IV PUSH breakthrough pain>6 03/15/17 08:45 (Yesika Gamino) Medical Decision Making MDM Remarks 76 y/o FM s/p L4/L5 TLIF with cage and pedicle screw fixation uncontrolled hypertension, being managed by Dr. Gillette, family physician (Yesika Gamino) Plan Plan Remarks cont home antihypertensives, cont Catapres prn consult primary care physician Dr. Balbir Gillette for uncontrolled hypertension cont therapy cont neuro checks and vitals Dr. Hawthorne dw Dr. Gillette over the phone (Yesika Gamino) Attending Statement The exam, history, and the medical decision-making described in the above note were completed with the assistance of the mid-level provider. I reviewed and agree with the findings presented. I attest that I had a [id number] encounter with the patient on the same day, and personally performed and documented my assessment and findings in the medical record. (Garcia Hawthorne MD) Yesika Gamino Mar 18, 2017 11:09 Garcia Hawthorne MD Mar 18, 2017 20:28
[2017-03-18] MEDS ORDERED: RESP: ALBUTEROL 1.25 MG/3 ML NEB (SCH) NEB (15:30)
[2017-03-18] MEDS ORDERED: ALPRAZolam 0.25 MG TAB PO PRN (15:30)
[2017-03-18] MEDS: amLODIPine BESYLATE 5 MG TAB PO SCH (16:34)
--- NOTE | 2017-03-18 17:35 | MB ---
cc: ARIELLA WADDELL M.D. DATE OF CONSULTATION 03/18/2017 REQUESTING PHYSICIAN Chucho Osorio MD REASON FOR CONSULTATION Assistance with medical management of hypertension. HISTORY OF PRESENT ILLNESS This 76-year-old white female well-known to the undersigned physician has a history of hypertension and lumbar disk disease. The patient underwent an L4-L5 transforaminal interbody fusion with an L4-L5 decompressive laminectomy and pedicle screw fixation and interbody cage placement performed by Dr. Osorio on March 13, 2017. The patient did well intraoperatively and initially postoperatively she still has quite a bit of pain in the low back and radiating down the left leg to the ankle. She states that she has been up out of bed with therapy and has been sitting in a chair. Her appetite has been fair. The patient however had widely fluctuating blood pressure readings which have been as high as 213/101. She normally receives metoprolol succinate ER 50 mg daily and benazepril 40 mg daily. She is currently receiving the metoprolol succinate ER and lisinopril 40 mg daily. She has an order for clonidine which has been used as needed for elevated blood pressure readings. The patient is very concerned about possibility of a stroke. Initially Dr. Osorio has been managing the hypertension but the patient has requested medical consultation with the undersigned physician for assistance with control of blood pressure. The patient has had no chest pain. No shortness of breath. She has been having some wheezing. She denies any cough or sputum production. She has had some postnasal drip. Denies any headaches, visual changes. She has had some pounding of her heart but no palpitations. She denies any orthopnea, paroxysmal nocturnal dyspnea, lower extremity edema. She denies any lightheadedness and dizziness upon arising. Her appetite has been fair. She has had no abdominal pain. Her bowels were moving on a daily basis but they were loose yesterday. She currently states that she has been sleeping fairly well when the pain is under adequate control. She denies any significant anxiety at this point. She has had no panic attacks. She does have a history of anxiety due to adjustment reaction with anxious mood. She is receiving Wellbutrin and has done so for quite awhile. The patient normally he has chronic insomnia for which she received Temazepam. She has been using the Temazepam as needed during the hospitalization and she does have a prescription typically for diazepam to use as needed for anxiety. She has had nothing on a p.r.n. basis for anxiety since her admission. PAST MEDICAL HISTORY The patient's past medical history is significant for: 1. Gastroesophageal reflux disease. 2. Osteopenia. 3. Allergic rhinitis. 4. She had recurrent small bowel obstruction due to abdominal adhesions. 5. She is status post lysis of adhesions surgery years ago and has not had any recurrence. 6. She had ulnar nerve entrapment on the right and underwent ulnar nerve transposition surgery in 2011. 7. She has hyperlipidemia. 8. Thalassemia minor. 9. Vitamin D deficiency which has been corrected. 10. 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 11. She has a history of bilateral kidney stones. 12. Lumbar disk disease. 13. She has lichen sclerosis of the labia. 14. History of gastritis with H pylori positive, but she was treated in 2006 with antibiotic regimen. 15. She has a history of polymyalgia rheumatica in 2013. 16. The patient has a history of chronic sinusitis from [id number] but it resolved after surgical intervention. PAST SURGICAL HISTORY Her surgical history consists of: 1. Sinus surgery in 2003. 2. Total abdominal hysterectomy with bilateral salpingo-oophorectomy. 3. She is status post cholecystectomy in 2010. 4. Status post lysis of the adhesions surgery in December 2010. 5. She had ulnar nerve transposition in April 2012. 6. And she had bilateral cataract removal with lens implants. MEDICATIONS Her current medications are: 1. Morphine sulfate 4 mg every 3 hours as needed for breakthrough pain. 2. Vitamin D 5000 international units daily. 3. Pantoprazole 40 mg daily. 4. Lisinopril 40 mg daily. 5. Calcium with vitamin D 500 mg daily. 6. Wellbutrin SR 150 mg b.i.d. 7. Fluticasone nasal spray one spray in each nostril b.i.d. 8. Metoprolol succinate ER 50 mg at bedtime. 9. Colace 100 mg twice daily. 10. Dicyclomine 10 mg three times a day as needed for abdominal cramping. 11. Lomotil 2 tablets every 6 hours as needed for diarrhea. 12. Temazepam 30 mg at bedtime as needed for insomnia. 13. Benadryl 25 mg IV every 6 hours as needed for itching. 14. Dulcolax suppository p.r.n. 15. Milk of magnesia p.r.n. 16. Zofran 4 mg every 6 hours as needed for nausea. 17. Promethazine 25 mg every 4 hours IM as needed for nausea and vomiting. 18. Flexeril 10 mg 1 tablet a every 8 hours as needed for muscle spasms. 19. Clonidine 0.1 mg 1 tablet every 6 hours as needed for systolic blood pressure greater than 170. 20. Tylenol 650 mg every 4 hours as needed for temperature greater than 101.5 degrees Fahrenheit. 21. Albuterol nebulizer treatments p.r.n. 22. Percocet 10/325 mg one to two tablets every 4 hours as needed for pain. ALLERGIES SHE HAS ALLERGIES TO SULFA, ASPIRIN, LATEX AND PENICILLIN. FAMILY HISTORY Noncontributory SOCIAL HISTORY She is . She is a retired registered nurse. She does not smoke nor did she ever. She drinks alcohol socially and she lives with her . REVIEW OF SYSTEMS Negative except as outlined above. PHYSICAL EXAMINATION VITAL SIGNS: At the current time blood pressure is 170/84 with heart rate of 78, respirations 16, temperature 97.3 degrees Fahrenheit. GENERAL: This is a well-nourished, well-developed elderly white female lying in bed in no acute distress this time. HEENT: Pupils equal, round, react to light. Extraocular movements are intact. Sclerae anicteric. Conjunctive were pink. The bilateral lens implants in place. Mouth and throat reveal dry mucous membranes. No erythema, exudates. Dentition is good. NECK: Supple without lymphadenopathy, JVD, bruits or thyromegaly. CARDIOVASCULAR: Regular rate and rhythm without murmurs, rubs or gallops. LUNGS: Reveal end expiratory wheezes, no rales or rhonchi. Restricted expiratory airflow. ABDOMEN: Soft, nontender, nondistended. Bowel sounds present. No mass. No hepatosplenomegaly. GENITOURINARY: Deferred. RECTAL: Deferred. EXTREMITIES: Lower extremities reveal no appreciable edema. No calf tenderness. No Homans' sign. 2+ distal pulses. SKIN: Warm and dry. No significant rashes or lesions. NEUROLOGIC: Emanation is nonfocal. LABORATORY DATA The patient's last laboratory studies were performed on March 13, 2017 which included a CBC with white blood cell count 5.5, hemoglobin 10.7, hematocrit 33.3. Platelet count was 227,000. The patient's basic metabolic profile was within normal limits. IMPRESSION AND PLAN 1. This 76-year-old white female is status post lumbar fusion. She is working with physical and occupational therapy. Would defer any activity orders, therapy orders and wound care to neurosurgery. 2. Hypertension. Blood pressure is very variable, however, it is elevated most of the time. This could be multifactorial including the stress of the recent surgery, the patient's anxiety and her pain level. We will check a basic metabolic profile to follow up renal function and electrolytes. We will change patient's metoprolol to metoprolol tartrate 50 mg b.i.d. Continue lisinopril 40 mg daily and we will add the amlodipine 5 mg a day. Continue clonidine as needed for elevated blood pressure readings. 3. Wheezing. The patient is experiencing some wheezing but lungs otherwise reveal no rhonchi or rales. Will provide her with low-dose nebulizer treatments with albuterol and incentive spirometry to try to improve respiratory status. The patient has not been hypoxemic. Oxygen saturations have been good. 4. DVT prophylaxis. The patient has ANGELO hose in place. She is up out of the bed every day. 5. History of anxiety. We will order the patient alprazolam as needed for any anxiety and continue with Wellbutrin SR as ordered. 6. Gastroesophageal reflux disease. Continue with pantoprazole 40 mg daily. Thank you for this consultation. I will follow the patient with you. The patient's disposition will be to inpatient rehab once her blood pressure is under better control. MD ANAY Torres/RANDY /3:32 PM /5:10 PM
[2017-03-18] MEDS: METOPROLOL TARTRATE 50 MG TAB PO SCH (21:18)
[2017-03-19] VITALS: BP 170/81; PULSE 73; RESP 17; TEMP 98.9; O2SAT 93
[2017-03-19] MEDS: oxyCODONE/ACETAMINOPHEN 10 MG/325 MG TAB PO PRN ×4 (01:34→13:46)
[2017-03-19 05:51] VITALS: BP 187/88; PULSE 74; RESP 18; TEMP 98.2; O2SAT 96
[2017-03-19] MEDS: cloNIDine HCL 0.1 MG TAB PO PRN (06:02)
[2017-03-19 08:07] VITALS: BP 164/74; PULSE 83; RESP 17; TEMP 98.7; O2SAT 96
[2017-03-19] MEDS: SODIUM CHLORIDE 0.9% FLUSH 10 ML FLUSH IV FLUSH SCH (09:00)
[2017-03-19] MEDS: amLODIPine BESYLATE 5 MG TAB PO SCH (09:26)
[2017-03-19] MEDS: LISINOPRIL 20 MG TAB PO SCH (09:26)
[2017-03-19] MEDS: METOPROLOL TARTRATE 50 MG TAB PO SCH (09:26)
[2017-03-19] MEDS: buPROPion HCL 150 MG SUSTAINED RELEASE TAB PO SCH (09:26)
[2017-03-19] MEDS: CALCIUM/VITAMIN D 250 MG/125 U TAB PO SCH (09:26)
[2017-03-19] MEDS: PANTOPRAZOLE SOD 40 MG DELAYED RELEASE TAB PO SCH (09:26)
[2017-03-19] MEDS: FLUTICASONE PROPIONATE 50 MCG/ACT 16 GM NASAL SPRAY EACH NARE SCH (09:27)
[2017-03-19] MEDS: DOCUSATE SODIUM 100 MG CAP PO SCH (09:27)
[2017-03-19] MEDS: CHOLECALCIFEROL (VIT D3) 1000 UNIT TAB PO SCH (09:27)
[2017-03-19 10:35] LABS: AUTOMATED NEUTROPHIL # 10.3 TH/MM3 (1.8-7.7); BASOPHIL # 0.1 TH/MM3 (0-0.2); BASOPHIL % 0.6 % (0.0-2.0); EOSINOPHIL # 0.1 TH/MM3 (0-0.4); EOSINOPHIL % 1.1 % (0.0-4.0); HEMATOCRIT 34.4 % (35.0-46.0); HEMO FLAGS DIFF FINAL; LYMPH % 8.1 % (9.0-44.0); MEAN CELL VOLUME 61.9 FL (80.0-100.0); MEAN CORPUSCULAR HGB CONC 30.7 % (32.0-36.0); MONO % 8.1 % (0.0-8.0); NEUT % 82.1 % (16.0-70.0); PLATELET COUNT 367 TH/MM3 (150-450); RED BLOOD COUNT 5.56 MIL/MM3 (4.00-5.30); RED CELL DISTRIBUTION WIDTH 15.7 % (11.6-17.2); WHITE BLOOD COUNT 12.5 TH/MM3 (4.0-11.0)
--- NOTE | 2017-03-19 10:54 | HHI.NSPN ---
History Chief Complaint: Incisional back pain radiating into the left lateral leg. Interval History 03/14/17: Pt s/p L4/L5 TLIF with cage and pedicle screw fixation on 03/13/17. Complains of incisional back pain controlled with [employer]. Pt with some pain radiating into the left lateral leg to the ankle. Pt drinking water well. Looking forward to PT today. 03/15/17: Patient complains of incisional pain and pain in her left leg. She states that she has pain mostly in the lateral aspect but is now having pain in the posterior aspect also. Her Chavez catheter was placed back in secondary to her being unable to void. She states that the Percocet causing nausea and the [employer] does not. She is trying to use antiemetics to help with her nausea. 03/19/17: Patient complains of incisional back pain and at times radiating into the left lateral leg although controlled now with 1 Percocet. She states that she is ambulating with physical therapy. She is tolerating a diet. She is looking forward to rehabilitation. Review of Systems General: Negative for: fever, chills, insomnia Respiratory: Negative for: shortness of breath, cough, sputum Cardiovascular: Negative for: chest pain Gastrointestinal: Negative for: nausea, vomitting, diarrhea, constipation Exam Results Vital Signs Date Time Temp Pulse Resp B/P (MAP) Pulse Ox O2 Delivery O2 Flow Rate FiO2 03/19/17 10:42 18 03/19/17 08:07 98.7 83 164/74 (104) 96 Physical Examination Resp: CTA bilaterally Heart: NSR no murmurs Abd: Soft positive bs Skin: Pt log rolled. Incision clean and dry. No signs of infection. New bandage placed. Muscle: Moves LEs with good strength 5/5. Neuro: Pt awake and alert. Follows commands well. Speech clear and appropriate. Sensation intact. Lab, Micro, Other Results Last Impressions Lumbar Spine X-Ray 03/13/17 0000 Signed Impressions: Service Date/Time: Monday, March 13, 2017 09:03 - CONCLUSION: Lateral fluoroscopic images during placement of rods and screws at L4-5 on the left. Intervertebral disc device also seen L4-L5. Selvin Menezes MD Laboratory Tests Test 03/19/17 10:07 White Blood Count 12.5 TH/MM3 Red Blood Count 5.56 MIL/MM3 Hemoglobin 10.6 GM/DL Hematocrit 34.4 % Mean Corpuscular Volume 61.9 FL Mean Corpuscular Hemoglobin 19.0 PG Mean Corpuscular Hemoglobin Concent 30.7 % Red Cell Distribution Width 15.7 % Platelet Count 367 TH/MM3 Mean Platelet Volume 8.0 FL Neutrophils (%) (Auto) 82.1 % Lymphocytes (%) (Auto) 8.1 % Monocytes (%) (Auto) 8.1 % Eosinophils (%) (Auto) 1.1 % Basophils (%) (Auto) 0.6 % Neutrophils # (Auto) 10.3 TH/MM3 Lymphocytes # (Auto) 1.0 TH/MM3 Monocytes # (Auto) 1.0 TH/MM3 Eosinophils # (Auto) 0.1 TH/MM3 Basophils # (Auto) 0.1 TH/MM3 CBC Comment DIFF FINAL Differential Comment Medical Decision Making Impression and Plan A: 76 y/o FM s/p L4/L5 TLIF with cage and pedicle screw fixation. P: Rehab placement when okay with medicine. Pt being treated for hypertension. Continue with PT. Selvin Resendiz Mar 19, 2017 10:54 am
[2017-03-19 11:05] LABS: BICARBONATE 29.5 MEQ/L (21.0-32.0)
[2017-03-19 11:13] LABS: POTASSIUM 2.9 MEQ/L (3.5-5.1)
[2017-03-19 12:06] VITALS: BP 130/67; PULSE 72; RESP 18; TEMP 97.7; O2SAT 96
[2017-03-19] MEDS ORDERED: POTASSIUM CHLORIDE 20 MEQ CONTROLLED RELEASE TAB PO SCH (14:00)
[2017-03-19 15:11] VITALS: RESP 16
[2017-03-23] MEDS ORDERED: GETGO ROLLING W1 MI1 (09:01)
[2017-03-28] MEDS ORDERED: FLUT50SP EACH NARE (08:25)
[2017-03-28] MEDS ORDERED: PERC10TA27 PO (08:25)
[2017-03-28] MEDS ORDERED: GABA100C4 PO (08:25)
[2017-03-28] MEDS ORDERED: RABE1TAB PO (08:25)
[2017-03-28] MEDS ORDERED: CYCL1TAB29 PO (08:25)
[2017-03-28] MEDS ORDERED: CALC600T64 PO (08:25)
[2017-03-28] MEDS ORDERED: TEMA30CA PO (08:25)
[2017-03-28] MEDS ORDERED: VITA100064 PO (08:25)
[2017-03-28] MEDS ORDERED: BENA40TA PO (08:25)
[2017-03-28] MEDS ORDERED: BUPR300T PO (08:25)
[2017-03-28] MEDS ORDERED: METO-338 PO (08:25)
[2017-03-28] MEDS ORDERED: AMLO5 PO (08:25)
--- NOTE | 2017-04-08 09:42 | HHI.DS ---
Discharge Summary Admission Date Mar 13, 2017 at 06:09 Discharge Date: Mar 19, 2017 Admitting Diagnosis (1) DDD (degenerative disc disease), lumbar Diagnosis: Principal ICD Code: M51.36 - Other intervertebral disc degeneration, lumbar region Status: Chronic (2) Lumbar radiculopathy, chronic Diagnosis: Principal ICD Code: M54.16 - Radiculopathy, lumbar region (3) Impaired mobility and activities of daily living Diagnosis: Principal ICD Code: Z74.09 - Other reduced mobility Status: Acute Procedures Lumbar L4/L5 transforaminal interbody fusion; L4/L5 decompressive laminectomy; L4/L5 pedicle screw fixation; L4/L5 interbody cage placement by Dr. Osorio on . Brief History Is a 76-year-old female who presented to our office for evaluation of low back pain and left leg pain. She complained of left leg pain for 2 years progressive getting worse. She also complained of low back pain. She states the sciatica is intermittent although occurs every day and sometimes the pain is intolerable. The pain radiates into the left lateral leg to the ankle and is not sure if it goes into the foot. She denies any paresthesias or weakness in the lower extremities. Her pain improves with lying down and at times can resolve. She states that she lays on a heating pad a lot to help with her pain. She has been to physical therapy several months ago which did not help. She's had chiropractic treatments in the past which make it worse. She's been to pain management and had epidural steroid injections and one ablation which gave her very temporary relief. She states that she started to have pain in the right buttock but not the leg. She has pain across the low back and she states that she would not be able to live with her back pain that she has either. She denies any bowel or bladder incontinence. Imaging MRI of the lumbar spine from December 16, 2016 reveals significant L4/L5 disc degeneration with associated grade 1 spondylolisthesis as well as disc protrusion and facet hypertrophy with left-sided foraminal stenosis. There are endplates and degenerative changes at the L4/L5 levels also. She does have some disc protrusion and facet hypertrophy at other levels without any significant stenosis. Hospital Course Vision underwent the above-noted procedure performed by Dr. Osorio. There was no intraoperative complications. Postoperatively patient was admitted to the medical surgical floor. Her pain was controlled with a NEIGHBORHOOD AIDE. Chavez catheter was discontinued. Physical therapy was consulted in her activity status was increased. Patient's NEIGHBORHOOD AIDE was discontinued. Patient's primary care physician was consulted for assistance with her hypertension. Patient had changes to her antihypertensive medications and she was discharged to rehabilitation in stable condition. Pt Condition on Discharge: Stable Discharge Disposition: Rehab Inpatient Discharge Instructions DIET: Follow Instructions for: As Tolerated, No Restrictions ACTIVITIES You can perform: Shower Only-No Bath Activities to Avoid: Lifting/Bending, Prolonged Standing, Strenuous Activity, Bathing, Driving ADDITIONAL Activity Instructio: back brace on when out of bed Continued Medications: Denosumab Inj (Prolia Inj) 60 Mg/Ml Inj 60 MG SQ Q180D, VIAL 0 Refills Estrogens, Conjugated (Premarin) 0.625 Mg Tab 0.625 MG PO WEEKLY for Estrogen Supplements, #30 TAB 0 Refills Selvin Resendiz Apr 08, 2017 09:42
== END 2017-03-19 15:42 | DRG 460 ==
LOC: HSDI 03-13 06:09 → N05B 03-13 14:17
PROVIDERS: ADMIT Neurological Surgery; ATTEND Neurological Surgery
PROC: 0ST20ZZ Resection of Lumbar Vertebral Disc, Open Approach (ICD-10-PCS; 2017-03-13)
PROC: 0SG00AJ Fusion of Lumbar Vertebral Joint with Interbody Fusion Device, Posterior Approach, Anterior Column, Open Approach (ICD-10-PCS; principal; 2017-03-13 08:38)
DX: M51.16 Intervertebral disc disorders with radiculopathy, lumbar region (principal); M43.10 Spondylolisthesis, site unspecified; I10 Essential (primary) hypertension; K21.9 Gastro-esophageal reflux disease without esophagitis; H91.90 Unspecified hearing loss, unspecified ear; E78.5 Hyperlipidemia, unspecified; R06.2 Wheezing; F41.9 Anxiety disorder, unspecified; G47.00 Insomnia, unspecified; Z87.891 Personal history of nicotine dependence; Z86.14 Personal history of Methicillin resistant Staphylococcus aureus infection
CPT/HCPCS: 72020; 72100; 76000; 76937; 80048; 85025; 85027; 86850; 86900; 86901; 86920; 94150; 94664; C1713; J0131; J1100; J2250; J2270; J2405; J2550; J2710; J3010; J3370; J3480; J7050; J7120; J7613

== ENCOUNTER 2017-10-25 13:15 | Inpatient (IN) | payer MEDICARE ==
[~2017-10-25] VITALS: Ht 156.2 cm; Wt 65.0 kg
[~2017-10-25 13:15] MED LIST changes: +AMLO5 PO; +CYCL10TA PO; -DICY10CA12 PO; +GABA600T PO; +GETGO ROLLING W1 MI1; -LOMO2.5T PO; +METO-338 PO; -METO50TA11 PO; -PROC10TA PO
[2017-10-25 13:23] VITALS: BP 178/90; PULSE 92; RESP 16; TEMP 99.5; O2SAT 96
--- NOTE | 2017-10-25 14:11 | RADRPT ---
EXAM DATE/TIME: 10/25/2017 13:48 [facility] COMPARISON: No previous studies available for comparison. INDICATIONS : Right distal thumb pain . Patient fell today. MEDICAL HISTORY : None. SURGICAL HISTORY : None. ENCOUNTER: Initial ACUITY: 1 day PAIN SCORE: 6/10 LOCATION: Right distal 1st digit. FINDINGS: Examination of the first digit of the right hand demonstrates no evidence of fracture or dislocation. Possible partial subluxation of the 1st MCP joint. No radiopaque foreign bodies are seen. The sof t tissues are intact. CONCLUSION: Possible partial subluxation of the 1st MCP joint. No fracture seen. Mike Tucker MD on October 25, 2017 at 14:09 Board Certified Radiologist. This report was verified electronically.
--- NOTE | 2017-10-25 14:12 | RADRPT ---
EXAM DATE/TIME: 10/25/2017 13:53 [facility] COMPARISON: No previous studies available for comparison. INDICATIONS : Right foot pain. Patient fell today. MEDICAL HISTORY : None. SURGICAL HISTORY : None. ENCOUNTER: Initial ACUITY: 1 day PAIN SCORE: 6/10 LOCATION: Right foot. FINDINGS: Three view examination of the right foot demonstrates no soft tissue swelling, dislocation, or fractu re. The tarsal bones appear intact. The interphalangeal and metatarsophalangeal joints are intact. The calcaneus is intact. Bony mineralization is normal. CONCLUSION: No evidence of recent bony injury. Mike Tucker MD on October 25, 2017 at 14:10 Board Certified Radiologist. This report was verified electronically.
--- NOTE | 2017-10-25 14:13 | RADRPT ---
EXAM DATE/TIME: 10/25/2017 13:56 [facility] COMPARISON: No previous studies available for comparison. INDICATIONS : Right ankle pain. Patient fell today. MEDICAL HISTORY : None. SURGICAL HISTORY : None. ENCOUNTER: Initial ACUITY: 1 day PAIN SCORE: 6/10 LOCATION: Right ankle. FINDINGS: There is an oblique fracture of the distal fibula with one cortex width lateral displacement of the d istal fracture fragment. The distal tibia is intact. The ankle mortise is intact. Mild lateral sof t tissue swelling. CONCLUSION: Minimally displaced oblique fracture of the distal fibula. Mike Tucker MD on October 25, 2017 at 14:10 Board Certified Radiologist. This report was verified electronically.
--- NOTE | 2017-10-25 14:30 | PD ---
HPI Chief Complaint: Fall Time Seen by Provider: 13:57 Travel History International Travel<30 days: No Contact w/Intl Traveler<30days: No Traveled to known affect area: No History of Present Illness HPI 77yo F with PMH of HTN presents to the ED with c/o right ankle pain and right thumb pain s/p fall today. Pt said she may have trip on something in the bathroom and fell on her right side this morning. However, pt is a poor historian and cannot tell me exactly what happened. Denies any head trauma but does not remember what time she fell. Denies any visual changes, chest pain, sob, n/v, abdominal pain, focal weakness or numbness. Pt said she was crawling on the floor and had multiple bruises on her extremities. Daughter is concern because pt has been more forgetful in the last week and also has worsening balance in the last week. She had laminectomy in 02/2017 and has been on oxycodone for pain. PFSH Past Medical History Arthritis: Yes (minimal) Asthma: No Autoimmune Disease: No Heart Rhythm Problems: Yes Cancer: No Cardiovascular Problems: Yes (irregular heart beats occasionally) High Cholesterol: No Chest Pain: No Congestive Heart Failure: No COPD: No Cerebrovascular Accident: No Diabetes: No Endocrine: No GERD: Yes Genitourinary: Yes Hepatitis: No Hiatal Hernia: Yes Hypertension: No Immune Disorder: No Kidney Stones: Yes Musculoskeletal: Yes Neurologic: No Psychiatric: No Reproductive: Yes (fibroids, hysterectomy) Respiratory: No Migraines: No Renal Failure: No Seizures: No Sleep Apnea: No Thyroid Disease: No Ulcer: No Past Surgical History Abdominal Surgery: Yes (SBO obstruction, lysis of adhesions) AICD: No Cardiac Surgery: No Cholecystectomy: Yes Ear Surgery: No Endocrine Surgery: No Eye Surgery: Yes (BILATERAL CATARACT SX) Genitourinary Surgery: No Gynecologic Surgery: Yes (hysterectomy) Joint Replacement: No Oral Surgery: Yes (SINUS SURGERY) Pacemaker: No Thoracic Surgery: No Other Surgery: Yes Social History Alcohol Use: Yes Tobacco Use: No Substance Use: No Allergies-Medications (Allergen,Severity, Reaction): Coded Allergies: Sulfa (Sulfonamide Antibiotics) (Unverified Allergy, Severe, RASH, 07/05/17 ) aspirin (Unverified Allergy, Severe, PROLONGED BLEEDING, 07/05/17) latex (Unverified Allergy, Severe, Rash, 07/05/17) penicillin G (Unverified Allergy, Severe, RASH, 07/05/17) Reported Meds & Prescriptions Reported Meds & Active Scripts Active Norvasc (Amlodipine Besylate) 5 Mg Tab 5 Mg PO DAILY Lopressor (Metoprolol Tartrate) 100 Mg Tab 100 Mg PO Q12HR Flexeril (Cyclobenzaprine HCl) 10 Mg Tab 10 Mg PO Q8H PRN Percocet (Oxycodone-Acetaminophen) 10-325 mg Tab 1-2 Tab PO Q4H PRN Benazepril (Benazepril HCl) 40 Mg Tab 40 Mg PO DAILY Fluticasone Nasal [place] 50 Mcg/Act Naspr 50 Mcg EACH NARE BID 50 mcg/spray Temazepam 30 Mg Cap 30 Mg PO HS PRN Bupropion HCl ER 24 HR (Bupropion HCl) 300 Mg Tab 300 Mg PO DAILY Vitamin D3 (Cholecalciferol) 1,000 Unit Tab 5,000 Units PO DAILY Rabeprazole (Rabeprazole Sodium) 20 Mg Tab 20 Mg PO DAILY Calcium 600 + Vit D Tablet (Calcium Carbonate/Vitamin D3) 1 Each Tablet 1 Tab PO DAILY Walker Rolling/GetGo (Device) 1 Mis Mis Ea .ROUTE DIRECTED Reported Gabapentin 600 Mg Tab 600 Mg PO TID Prolia Inj (Denosumab) 60 Mg/Ml Inj 60 Mg SQ Q180D Premarin (Estrogens Conjugated) 0.625 Mg Tab 0.625 Mg PO WEEKLY Review of Systems Except as stated in HPI: all other systems reviewed are Neg Physical Exam Narrative GENERAL: 77yo F in mild distress. SKIN: Focused skin assessment warm/dry. HEAD: Atraumatic. Normocephalic. EYES: Pupils equal and round. No scleral icterus. No injection or drainage. ENT: No nasal bleeding or discharge. Mucous membranes pink and moist. NECK: No midline cervical spine ttp. CARDIOVASCULAR: Regular rate and rhythm. No murmur appreciated. RESPIRATORY: No accessory muscle use. Clear to auscultation. Breath sounds equal bilaterally. GASTROINTESTINAL: Abdomen soft, non-tender, nondistended. MUSCULOSKELETAL: RLE: DP 2+. +TTP lateral malleolus. +Ecchymoses in knee. No ttp right hip. Right hand: +Ecchymoses and ttp in base of 1st metacarpal. No scaphoid ttp. Sensation intact. Muscle strength intact. NEUROLOGICAL: Awake and alert. No obvious cranial nerve deficits. Motor grossly within normal limits. Normal speech. PSYCHIATRIC: Appropriate mood and affect; insight and judgment normal. Data Data Last Documented VS Vital Signs Date Time Temp Pulse Resp B/P (MAP) Pulse Ox O2 Delivery O2 Flow Rate FiO2 10/25/17 13:23 99.5 92 16 178/90 (119) 96 Orders Orders Ankle, Complete ([id number]) (10/25/17 ) Foot, Complete ([id number]) (10/25/17 ) Finger ([id number]) (10/25/17 ) Ct Brain W/O Iv Contrast(Rout) (10/25/17 ) Complete Blood Count With Diff (10/25/17 14:21) Basic Metabolic Panel (Bmp) (10/25/17 14:21) Prothrombin Time / Inr (Pt) (10/25/17 14:21) Act Partial Throm Time (Ptt) (10/25/17 14:21) Magnesium (Mg) (10/25/17 14:21) Urinalysis - C+S If Indicated (10/25/17 14:21) Splint Or Brace Apply/Monitor (10/25/17 14:31) Creatine Kinase (Cpk) (10/25/17 14:31) Fiberglass Short Leg Splint Ad (10/25/17 ) Fiberglass Sugartong Sp Ad Sl (10/25/17 ) Fiberglass Thumb Spica Adult (10/25/17 ) Consult Hand Surgery (10/25/17 ) Consult Orthopedic (10/25/17 ) (Hub Use Only)Inp Phy Cons/Ref (10/25/17 ) (Hub Use Only)Inp Phy Cons/Ref (10/25/17 ) Admit Order (Ed Use Only) (10/25/17 16:12) CKMB (10/25/17 15:40) CKMB% (10/25/17 15:40) Labs Laboratory Tests Test 10/25/17 15:40 White Blood Count 9.5 TH/MM3 Red Blood Count 5.32 MIL/MM3 Hemoglobin 10.4 GM/DL Hematocrit 33.3 % Mean Corpuscular Volume 62.6 FL Mean Corpuscular Hemoglobin 19.5 PG Mean Corpuscular Hemoglobin Concent 31.2 % Red Cell Distribution Width 15.9 % Platelet Count 319 TH/MM3 Mean Platelet Volume 7.8 FL CBC Comment AUTO DIFF Differential Total Cells Counted 100 Neutrophils % (Manual) 88 % Band Neutrophils % 1 % Lymphocytes % 8 % Monocytes % 3 % Neutrophils # (Manual) 8.5 TH/MM3 Differential Comment FINAL DIFF MANUAL Platelet Estimate NORMAL Platelet Morphology Comment NORMAL Target Cells 1+ Ovalocytes 2+ Prothrombin Time 10.3 SEC Prothromb Time International Ratio 1.0 RATIO Activated Partial Thromboplast Time 24.1 SEC Blood Urea Nitrogen 10 MG/DL Creatinine 0.62 MG/DL Random Glucose 83 MG/DL Calcium Level 8.8 MG/DL Magnesium Level 2.1 MG/DL Sodium Level 141 MEQ/L Potassium Level 3.5 MEQ/L Chloride Level 109 MEQ/L Carbon Dioxide Level 23.8 MEQ/L Anion Gap 8 MEQ/L Estimat Glomerular Filtration Rate 94 ML/MIN Total Creatine Kinase 471 U/L Creatine Kinase MB 5.9 NG/ML Creatine Kinase MB % 1.3 % MDM Medical Decision Making Medical Screen Exam Complete: Yes Emergency Medical Condition: Yes Differential Diagnosis Fracture vs. contusion vs. CVA vs. imbalance secondary to pain vs. dementia vs. delirium Narrative Course 77yo F here for evaluation for worsening memory and balance for 1 week as per daughter. Pt has no focal neurologic deficits on exam. Denies any history of stroke. Xray right ankle showed minimally displaced oblique fracture of the distal fibula. Pt place in right leg posterior splint. Neurovascular intact. Xray right thumb showed possible partial subluxation of the 1st MCP joint. No fracture seen. I discussed with Dr. Monge from hand surgery and she does not recommend reducing the thumb in the ED. Recommend thumb spica splint and follow up in her office if pt was getting discharge or hand consult and she will see pt if admitted. Pt place in right thumb spica splint. Hand consult placed. CT brain negative. Since pt cannot bear weight on right leg and will be very difficult to use crutches with splint in right arm, will admit pt for PT evaluation. Pt also needs further evaluation for worsening memory and balance. Discussed with Dr. Gonzalez and accepted to his service. Labs reviewed, no leukocytosis. H/H low at 10.4/33.3 but this is baseline. CMP showed mildly elevated CPK at 471. Will give NS IVF and percocet for pain. Diagnosis Primary Impression: Fracture of distal fibula Qualified Codes: S82.831A - Other fracture of upper and lower end of right fibula, initial encounter for closed fracture Additional Impressions: Subluxation of thumb Qualified Codes: S63.101A - Unspecified subluxation of right thumb, initial encounter Memory changes Admitting Information Admitting Physician Requests: Observation Candelaria Irwin DO October 25, 2017 14:30
--- NOTE | 2017-10-25 14:59 | RADRPT ---
EXAM DATE/TIME: 10/25/2017 14:41 [facility] COMPARISON: CT BRAIN W/O CONTRAST, June 20, 2012, 12:16. INDICATIONS : Fall, increased memory loss RADIATION DOSE: 34.76 CTDIvol (mGy) MEDICAL HISTORY : Hypertension. SURGICAL HISTORY : None. ENCOUNTER: Initial ACUITY: 1 day PAIN SCALE: 0/10 LOCATION: cranial TECHNIQUE: Multiple contiguous axial images were obtained of the head. Using automated exposure control and adj ustment of the mA and/or kV according to patient size, radiation dose was kept as low as reasonably a chievable to obtain optimal diagnostic quality images. DICOM format image data is available electro nically for review and comparison. FINDINGS: CEREBRUM: The ventricles are normal for age. No evidence of midline shift, mass lesion, hemorrhage or acute in farction. No extra-axial fluid collections are seen. POSTERIOR FOSSA: The cerebellum and brainstem are intact. The 4th ventricle is midline. The cerebellopontine angle i s unremarkable. EXTRACRANIAL: The visualized portion of the orbits is intact. SKULL: The exam demonstrates 2 small lytic lesions one in the left posterior parietal skull and the second i n the right posterior occipital bone. These are compared back to a previous dated 06/20/[address] able as such, they likely represent venous lakes. CONCLUSION: 1. No acute intracranial abnormality identified. Royce Venegas MD on October 25, 2017 at 14:55 Board Certified Radiologist. This report was verified electronically.
[2017-10-25 16:06] LABS: HEMATOCRIT 33.3 % (35.0-46.0); HEMOGLOBIN 10.4 GM/DL (11.6-15.3); MEAN CELL VOLUME 62.6 FL (80.0-100.0); MEAN CORPUSCULAR HEMOGLOBIN 19.5 PG (27.0-34.0); MEAN CORPUSCULAR HGB CONC 31.2 % (32.0-36.0); MEAN PLATELET VOLUME 7.8 FL (7.0-11.0); PLATELET COUNT 319 TH/MM3 (150-450); PROTHROMBIN TIME - PATIENT 10.3 SEC (9.8-11.6); RED BLOOD COUNT 5.32 MIL/MM3 (4.00-5.30); RED CELL DISTRIBUTION WIDTH 15.9 % (11.6-17.2); WHITE BLOOD COUNT 9.5 TH/MM3 (4.0-11.0)
[2017-10-25 16:19] LABS: CALCIUM 8.8 MG/DL (8.5-10.1); CREATININE 0.62 MG/DL (0.50-1.00)
[2017-10-25 16:20] LABS: BICARBONATE 23.8 MEQ/L (21.0-32.0); MAGNESIUM 2.1 MG/DL (1.5-2.5)
[2017-10-25 16:45] LABS: BANDS 1 % (0-6); LYMPHOCYTES 8 % (9-44); MONOCYTES 3 % (0-8); NEUTROPHIL # MANUAL DIFF 8.5 TH/MM3 (1.8-7.7); OVALOCYTES 2+ (NORMAL); POLYS (SEG NEUTROPHILS) 88 % (16-70); TARGET CELLS 1+ (NORMAL)
[2017-10-25] MEDS ORDERED: SODIUM CHLORID 0.9% 500 ML INJ 500 ML IV ONE (17:30)
[2017-10-25] MEDS ORDERED: oxyCODONE/ACETAMINOPHEN 5 MG/325 MG TAB PO ONE (17:30)
[2017-10-25] MEDS ORDERED: SODIUM CHLORIDE 0.9% FLUSH 10 ML FLUSH IV FLUSH PRN (18:00)
[2017-10-25] MEDS ORDERED: ONDANSETRON HCL 4 MG/2 ML VIAL IVP PRN (18:00)
[2017-10-25] MEDS ORDERED: NALOXONE HCL 0.4 MG/ML AMP IV PUSH PRN (18:00)
[2017-10-25] MEDS ORDERED: SENNOSIDES 8.6 MG TAB PO PRN (18:00)
[2017-10-25] MEDS ORDERED: LACTULOSE SYRUP 20 GM/30 ML CUP PO PRN (18:00)
[2017-10-25] MEDS ORDERED: MAGNESIUM HYDROXIDE SUSP 30 ML CUP PO PRN (18:00)
[2017-10-25] MEDS ORDERED: BISACODYL 10 MG SUPP RECTAL PRN (18:00)
[2017-10-25] MEDS ORDERED: ACETAMINOPHEN 325 MG TAB PO PRN (18:00)
--- NOTE | 2017-10-25 18:13 | HHI.HP ---
[facility] Balbir Gillette MD Admission Diagnosis Right fibula fracture, right thumb subulxation, memory changes Diagnoses: (1) Fracture of distal fibula (2) Subluxation of thumb (3) Memory changes Travel History International Travel<30 Days: No Contact w/Intl Traveler <30 Da: No Traveled to Known Affected Are: No History of Present Illness Written by Alvina Maxwell, acting as scribe for Dr. Gonzalez on 10/25/17 at 18: 14. Reports that her just went in to a senior care. Reports that things have been kind of emotional, she has been trying to take care of herself. She eats twice a day and has been visiting her . She currently lives at home alone. She denies any recent SOB, cough, chest pain, fevers, chills, n/v/d. She has noticed that she has been more forgetful than before. Denies any head pain or trauma with fall. She fell trying to get off of the toilet. She fell and then pain began afterwards on her right foot, states she was unable to stand up. Review of Systems Except as stated in HPI: all other systems reviewed are Neg Past Family Social History Past Medical History HTN Osteopenia GERD Hyperlipidemia Thalassemia minor Vitamin D deficiency Bilateral kidney stones LDD Polymyalgia rheumatica Chronic sinusitis Allergic rhinitis Recurrent small bowel obstructions Past Surgical History Sinus surgery in 2013 Total hysterectomy Cholecystectomy Lysis of adhesions in 2010 Status post bone nerve transposition surgery in 2012 Bilateral cataract removal with lens implant L4-L5 fusion and decompressive laminectomy Allergies: Coded Allergies: Sulfa (Sulfonamide Antibiotics) (Unverified Allergy, Severe, RASH, 07/05/17 ) aspirin (Unverified Allergy, Severe, PROLONGED BLEEDING, 07/05/17) latex (Unverified Allergy, Severe, Rash, 07/05/17) penicillin G (Unverified Allergy, Severe, RASH, 07/05/17) Physical Exam Vital Signs Vital Signs Date Time Temp Pulse Resp B/P (MAP) Pulse Ox O2 Delivery O2 Flow Rate FiO2 10/25/17 13:23 99.5 92 16 178/90 (410) 37 Physical Exam GENERAL: This is a well-nourished, well-developed patient, in no apparent distress. SKIN: No rashes, ecchymoses or lesions. Cool and dry. HEAD: Atraumatic. Normocephalic. No temporal or scalp tenderness. EYES: Pupils equal round and reactive. Extraocular motions intact. No scleral icterus. No injection or drainage. ENT: Nose without bleeding, purulent drainage or septal hematoma. Throat without erythema, tonsillar hypertrophy or exudate. Uvula midline. Airway patent. NECK: Trachea midline. No JVD or lymphadenopathy. Supple, nontender, no meningeal signs. CARDIOVASCULAR: Regular rate and rhythm without murmurs, gallops, or rubs. RESPIRATORY: Clear to auscultation. Breath sounds equal bilaterally. No wheezes , rales, or rhonchi. GASTROINTESTINAL: Abdomen soft, non-tender, nondistended. No hepato-splenomegaly , or palpable masses. No guarding. MUSCULOSKELETAL: Extremities without clubbing, cyanosis, or edema. No joint tenderness, effusion, or edema noted. No calf tenderness. Negative Homans sign bilaterally. NEUROLOGICAL: Awake and alert. Cranial nerves II through XII intact. Motor and sensory grossly within normal limits. Five out of 5 muscle strength in all muscle groups. Normal speech. Laboratory Laboratory Tests Test 10/25/17 15:40 White Blood Count 9.5 Red Blood Count 5.32 Hemoglobin 10.4 Hematocrit 33.3 Mean Corpuscular Volume 62.6 Mean Corpuscular Hemoglobin 19.5 Mean Corpuscular Hemoglobin Concent 31.2 Red Cell Distribution Width 15.9 Platelet Count 319 Mean Platelet Volume 7.8 CBC Comment AUTO DIFF Differential Total Cells Counted 100 Neutrophils % (Manual) 88 Band Neutrophils % 1 Lymphocytes % 8 Monocytes % 3 Neutrophils # (Manual) 8.5 Differential Comment FINAL DIFF MANUAL Platelet Estimate NORMAL Platelet Morphology Comment NORMAL Target Cells 1+ Ovalocytes 2+ Prothrombin Time 10.3 Prothromb Time International Ratio 1.0 Activated Partial Thromboplast Time 24.1 Blood Urea Nitrogen 10 Creatinine 0.62 Random Glucose 83 Calcium Level 8.8 Magnesium Level 2.1 Sodium Level 141 Potassium Level 3.5 Chloride Level 109 Carbon Dioxide Level 23.8 Anion Gap 8 Estimat Glomerular Filtration Rate 94 Total Creatine Kinase 471 Creatine Kinase MB 5.9 Creatine Kinase MB % 1.3 Result Diagram: 10/25/17 1540 10/25/17 1540 Caprini VTE Risk Assessment Caprini Risk Assessment Model Point Value = 1 Point Value = 2 Point Value = 3 Point Value = 5 Age 41-60 Minor surgery BMI > 25 kg/m2 Swollen legs Varicose veins or History of unexplained or recurrent spontaneous Oral contraceptives or hormone replacement Sepsis (< 1 month) Serious lung disease, including pneumonia (< 1 month) Abnormal pulmonary function Acute myocardial infarction Congestive heart failure (< 1 month) History of inflammatory bowel disease Medical patient at bed rest Age 61-74 Arthroscopic surgery Major open surgery (> 45 min) Laparoscopic surgery (> 45 min) Malignancy Confined to bed (> 72 hours) Immobilizing plaster cast Central venous access Age >= 75 History of VTE Family history of VTE Factor V Leiden Prothrombin [id number] Lupus anticoagulant Anticardiolipin antibodies Elevated serum homocysteine Heparin-induced thrombocytopenia Other congenital or acquired thrombophilia Stroke (< 1 month) Elective arthroplasty Hip, pelvis, or leg fracture Acute spinal cord injury (< 1 month) Prophylaxis Regimen Total Risk Factor Score Risk Level Prophylaxis Regimen 0-1 Low Early ambulation 2 Moderate Order ONE of the following: *Sequential Compression Device (SCD) *Heparin 5000 units SQ BID 3-4 Higher Order ONE of the following medications: *Heparin 5000 units SQ TID *Enoxaparin/Lovenox 40 mg SQ daily (WT < 150 kg, CrCl > 30 mL/min) *Enoxaparin/Lovenox 30 mg SQ daily (WT < 150 kg, CrCl > 10-29 mL/min) *Enoxaparin/Lovenox 30 mg SQ BID (WT < 150 kg, CrCl > 30 mL/min) AND/OR *Sequential Compression Device (SCD) 5 or more Highest Order ONE of the following medications: *Heparin 5000 units SQ TID (Preferred with Epidurals) *Enoxaparin/Lovenox 40 mg SQ daily (WT < 150 kg, CrCl > 30 mL/min) *Enoxaparin/Lovenox 30 mg SQ daily (WT < 150 kg, CrCl > 10-29 mL/min) *Enoxaparin/Lovenox 30 mg SQ BID (WT < 150 kg, CrCl > 30 mL/min) AND *Sequential Compression Device (SCD) Physician Certification Order for Inpatient Services The services are ordered in accordance with Medicare regulations or non- Medicare payer requirements, as applicable. In the case of services not specified as inpatient-only, they are appropriately provided as inpatient services in accordance with the 2-midnight benchmark. days is the estimated time the patient will need to remain in the hospital, assuming treatment plan goals are met and no additional complications. Problem Qualifiers (1) Fracture of distal fibula: Qualified Codes: S82.831A - Other fracture of upper and lower end of right fibula, initial encounter for closed fracture (2) Subluxation of thumb: Qualified Codes: S63.101A - Unspecified subluxation of right thumb, initial encounter Alvina Maxwell October 25, 2017 18:13
--- NOTE | 2017-10-25 18:29 | HHI.HP ---
[facility] Primary Care Physician Balbir Gillette MD Admission Diagnosis Right fibula fracture, right thumb subulxation, memory changes Diagnoses: (1) Fracture of distal fibula (2) Subluxation of thumb (3) Memory changes Chief Complaint: Fell with right ankle and hand pain Travel History International Travel<30 Days: No Contact w/Intl Traveler <30 Da: No Traveled to Known Affected Are: No History of Present Illness Written by Alvina Maxwell, acting as scribe for Dr. Gonzalez on 10/25/17 at 18: 14. 77-year-old female with past medical history significant for, HTN, HLD, osteopenia, GERD, thalassemia minor, and laminectomy in February of 2017 who presents to the ER with complaints of right ankle and right thumb pain after falling today at home. Patient reports that she was getting up to make her way to the bathroom when she fell. She denies any dizziness or lightheadedness prior to episode. After she feel she was unable to stand due to the leg pain. Reports that she fell and did not hit her head. Reports pain began shortly after she fell and this was located on her leg and right hand. She tells me that her just went in to a intermediate recently and things have been kind of emotional, she has been trying to take care of herself. She eats twice a day and has been visiting her as well. She currently lives at home alone. She denies any recent SOB, cough, chest pain, fevers, chills, n/v/d. She has noticed that she has been more forgetful than before and her friends have also mentioned this as well. Apparently daughter has also noticed that patient has been more forgetful and with an unsteady gait. She was evaluated in the ED and x-ray of right hand revealed possible partial subluxation of 1st MCP joint with no fracture. X-ray or right ankle showed minimally displaced oblique fracture of distal fibula. ED has consulted both hand surgery and orthopedic services for further evaluation. She will be admitted to observation unit. Review of Systems Except as stated in HPI: all other systems reviewed are Neg Past Family Social History Past Medical History HTN Osteopenia GERD Hyperlipidemia Thalassemia minor Vitamin D deficiency Bilateral kidney stones LDD Polymyalgia rheumatica Chronic sinusitis Allergic rhinitis Recurrent small bowel obstructions Past Surgical History Sinus surgery in 2013 Total hysterectomy Cholecystectomy Lysis of adhesions in 2010 Status post bone nerve transposition surgery in 2012 Bilateral cataract removal with lens implant L4-L5 fusion and decompressive laminectomy Reported Medications Reported Meds & Active Scripts Active Norvasc (Amlodipine Besylate) 5 Mg Tab 5 Mg PO DAILY Lopressor (Metoprolol Tartrate) 100 Mg Tab 100 Mg PO Q12HR Flexeril (Cyclobenzaprine HCl) 10 Mg Tab 10 Mg PO Q8H PRN Percocet (Oxycodone-Acetaminophen) 10-325 mg Tab 1-2 Tab PO Q4H PRN Benazepril (Benazepril HCl) 40 Mg Tab 40 Mg PO DAILY Fluticasone Nasal Hawkins 50 Mcg/Act Naspr 50 Mcg EACH NARE BID 50 mcg/spray Temazepam 30 Mg Cap 30 Mg PO HS PRN Bupropion HCl ER 24 HR (Bupropion HCl) 300 Mg Tab 300 Mg PO DAILY Vitamin D3 (Cholecalciferol) 1,000 Unit Tab 5,000 Units PO DAILY Rabeprazole (Rabeprazole Sodium) 20 Mg Tab 20 Mg PO DAILY Calcium 600 + Vit D Tablet (Calcium Carbonate/Vitamin D3) 1 Each Tablet 1 Tab PO DAILY Walker Rolling/GetGo (Device) 1 Mis Mis Ea .ROUTE DIRECTED Reported Gabapentin 600 Mg Tab 600 Mg PO TID Prolia Inj (Denosumab) 60 Mg/Ml Inj 60 Mg SQ Q180D Premarin (Estrogens Conjugated) 0.625 Mg Tab 0.625 Mg PO WEEKLY Allergies: Coded Allergies: Sulfa (Sulfonamide Antibiotics) (Unverified Allergy, Severe, RASH, 07/05/17 ) aspirin (Unverified Allergy, Severe, PROLONGED BLEEDING, 07/05/17) latex (Unverified Allergy, Severe, Rash, 07/05/17) penicillin G (Unverified Allergy, Severe, RASH, 07/05/17) Family History Grandmother: Cancer Social History Lives alone, has been recently moved into a intermediate Denies tobacco, alcohol, or illicit drug use. Physical Exam Vital Signs Vital Signs Date Time Temp Pulse Resp B/P (MAP) Pulse Ox O2 Delivery O2 Flow Rate FiO2 10/25/17 13:23 99.5 92 16 178/90 (290) 96 Physical Exam GENERAL: This is a well-nourished, well-developed patient, in no apparent distress. SKIN: No rashes. Cool and dry. Bilateral knee erythema with no ecchymosis. HEAD: Atraumatic. Normocephalic. No temporal or scalp tenderness. EYES: Pupils equal round and reactive. Extraocular motions intact. No scleral icterus. No injection or drainage. ENT: Nose without bleeding, purulent drainage. Throat without erythema. Airway patent. Mucus membranes dry. NECK: Trachea midline. No JVD. Supple, nontender. CARDIOVASCULAR: Regular rate and rhythm without murmurs, gallops, or rubs. RESPIRATORY: Clear to auscultation. Breath sounds equal bilaterally. No wheezes , rales, or rhonchi. GASTROINTESTINAL: Abdomen soft, non-tender, nondistended. No palpable masses. No guarding. MUSCULOSKELETAL: Extremities without clubbing, cyanosis, or edema. right hand thumb in splint with <3 second capillary refill, warm and pink. Right leg and foot in splint with <3 second capillary refill on toes, warm, pink. NEUROLOGICAL: Awake and alert. Cranial nerves II through XII intact. Motor and sensory grossly within normal limits. Mobility on right hand and ankle limited secondary to fracture and splint. Normal speech. Laboratory Laboratory Tests Test 10/25/17 15:40 White Blood Count 9.5 Red Blood Count 5.32 Hemoglobin 10.4 Hematocrit 33.3 Mean Corpuscular Volume 62.6 Mean Corpuscular Hemoglobin 19.5 Mean Corpuscular Hemoglobin Concent 31.2 Red Cell Distribution Width 15.9 Platelet Count 319 Mean Platelet Volume 7.8 CBC Comment AUTO DIFF Differential Total Cells Counted 100 Neutrophils % (Manual) 88 Band Neutrophils % 1 Lymphocytes % 8 Monocytes % 3 Neutrophils # (Manual) 8.5 Differential Comment FINAL DIFF MANUAL Platelet Estimate NORMAL Platelet Morphology Comment NORMAL Target Cells 1+ Ovalocytes 2+ Prothrombin Time 10.3 Prothromb Time International Ratio 1.0 Activated Partial Thromboplast Time 24.1 Blood Urea Nitrogen 10 Creatinine 0.62 Random Glucose 83 Calcium Level 8.8 Magnesium Level 2.1 Sodium Level 141 Potassium Level 3.5 Chloride Level 109 Carbon Dioxide Level 23.8 Anion Gap 8 Estimat Glomerular Filtration Rate 94 Total Creatine Kinase 471 Creatine Kinase MB 5.9 Creatine Kinase MB % 1.3 Result Diagram: 10/25/17 1540 10/25/17 1540 Imaging Last Impressions Head CT 10/25/17 0000 Signed Impressions: Service Date/Time: October 14:41 - CONCLUSION: 1. No acute intracranial abnormality identified. Royce Venegas MD Foot X-Ray 10/25/17 0000 Signed Impressions: Service Date/Time: October 13:53 - CONCLUSION: No evidence of recent bony injury. Mike Tucker MD Finger X-Ray 10/25/17 0000 Signed Impressions: Service Date/Time: October 13:48 - CONCLUSION: Possible partial subluxation of the 1st MCP joint. No fracture seen. Mike Tucker MD Ankle X-Ray 10/25/17 0000 Signed Impressions: Service Date/Time: October 13:56 - CONCLUSION: Minimally displaced oblique fracture of the distal fibula. Mike Tucker MD Capseni VTE Risk Assessment Caprini VTE Risk Assessment: Mod/High Risk (score >= 2) Caprini Risk Assessment Model Point Value = 1 Point Value = 2 Point Value = 3 Point Value = 5 Age 41-60 Minor surgery BMI > 25 kg/m2 Swollen legs Varicose veins or History of unexplained or recurrent spontaneous Oral contraceptives or hormone replacement Sepsis (< 1 month) Serious lung disease, including pneumonia (< 1 month) Abnormal pulmonary function Acute myocardial infarction Congestive heart failure (< 1 month) History of inflammatory bowel disease Medical patient at bed rest Age 61-74 Arthroscopic surgery Major open surgery (> 45 min) Laparoscopic surgery (> 45 min) Malignancy Confined to bed (> 72 hours) Immobilizing plaster cast Central venous access Age >= 75 History of VTE Family history of VTE Factor V Leiden Prothrombin [id number] Lupus anticoagulant Anticardiolipin antibodies Elevated serum homocysteine Heparin-induced thrombocytopenia Other congenital or acquired thrombophilia Stroke (< 1 month) Elective arthroplasty Hip, pelvis, or leg fracture Acute spinal cord injury (< 1 month) Prophylaxis Regimen Total Risk Factor Score Risk Level Prophylaxis Regimen 0-1 Low Early ambulation 2 Moderate Order ONE of the following: *Sequential Compression Device (SCD) *Heparin 5000 units SQ BID 3-4 Higher Order ONE of the following medications: *Heparin 5000 units SQ TID *Enoxaparin/Lovenox 40 mg SQ daily (WT < 150 kg, CrCl > 30 mL/min) *Enoxaparin/Lovenox 30 mg SQ daily (WT < 150 kg, CrCl > 10-29 mL/min) *Enoxaparin/Lovenox 30 mg SQ BID (WT < 150 kg, CrCl > 30 mL/min) AND/OR *Sequential Compression Device (SCD) 5 or more Highest Order ONE of the following medications: *Heparin 5000 units SQ TID (Preferred with Epidurals) *Enoxaparin/Lovenox 40 mg SQ daily (WT < 150 kg, CrCl > 30 mL/min) *Enoxaparin/Lovenox 30 mg SQ daily (WT < 150 kg, CrCl > 10-29 mL/min) *Enoxaparin/Lovenox 30 mg SQ BID (WT < 150 kg, CrCl > 30 mL/min) AND *Sequential Compression Device (SCD) Assessment and Plan Problem List: (1) Fracture of distal fibula ICD Code: S82.839A - Other fracture of upper and lower end of unspecified fibula, initial encounter for closed fracture Status: Acute (2) Subluxation of thumb ICD Code: S63.103A - Unspecified subluxation of unspecified thumb, initial encounter Status: Acute (3) Memory changes ICD Code: R41.3 - Other amnesia Status: Acute Assessment and Plan 77-year-old female with past medical history significant for, HTN, HLD, osteopenia, GERD, thalassemia minor, and laminectomy in February of 2017 who presents to the ER with complaints of right ankle and right thumb pain after falling today at home. Patient reports that she was getting up to make her way to the bathroom when she fell. Fall ?syncopal episode -CBC reviewed with microcytic anemia, patient with a history of thalassemia minor. BMP unremarkable -Total CK 471, appears mildly dehydrated, provide IV fluid bolus -CT of the head negative -Rule out infectious process, chest x-ray, UA -Check carotid ultrasound, EKG -Unable to do orthostatic BP secondary to right ankle fracture Memory loss Unsteady gait -MRI of the brain negative, labs unremarkable with the exception of microcytic anemia -Check TSH, B12 -Consult neurology for further workup and recommendations Right distal fibula fracture Right thumb subluxation -Ankle x-ray reviewed, minimally displaced oblique fracture of the distal fibula. -X-ray of right hand reviewed, possibly partial subluxation of first MCP joint, no fracture. -Splints placed to right ankle and right finger. -Hand surgery consulted, orthopedic services consulted -Pain control with [place], IV morphine for breakthrough pain. -PT/OT Hypertension -Continue home dose amlodipine and metoprolol Depression-continue home dose bupropion DVT prophylaxis-subcu heparin This note was transcribed by shirley [Alvina Maxwell]. I, Dr. Devin Juarez personally performed the history, physical exam, and medical decision making; and confirmed the accuracy of the information in the transcribed note. Authenticated by Dr. Devin Juarez on 10/25/17 at 18:36. Problem Qualifiers (1) Fracture of distal fibula: Qualified Codes: S82.831A - Other fracture of upper and lower end of right fibula, initial encounter for closed fracture (2) Subluxation of thumb: Qualified Codes: S63.101A - Unspecified subluxation of right thumb, initial encounter Alvina Maxwell October 25, 2017 18:29 Devin Quintana MD October 25, 2017 18:36
[2017-10-25 18:42] VITALS: BP 167/78; PULSE 92; RESP 16; TEMP 98.6; O2SAT 96
[2017-10-25] MEDS ORDERED: TEMAZEPAM 15 MG CAP PO PRN (18:45)
[2017-10-25] MEDS: HEPARIN SODIUM - SQ 10,000 UNITS/ML VIAL SQ SCH (18:57)
[2017-10-25] MEDS: SODIUM CHLOR 0.9% 1000 ML INJ 1,000 ML IV SCH (18:57)
[2017-10-25] MEDS ORDERED: ACETAMINOPHEN/HYDROcodone 325 MG/5 MG TAB PO PRN (19:00)
[2017-10-25] MEDS ORDERED: MORPHINE SULFATE 2 MG/ML SYRINGE IV PUSH PRN (19:00)
[2017-10-25] MEDS ORDERED: ACETAMINOPHEN/HYDROcodone 325 MG/7.5 MG TAB PO PRN (19:00)
[2017-10-25] MEDS ORDERED: oxyCODONE/ACETAMINOPHEN 5 MG/325 MG TAB PO PRN (19:00)
--- NOTE | 2017-10-25 19:08 | RADRPT ---
EXAM DATE/TIME: 10/25/2017 18:33 [facility] COMPARISON: CHEST PA & LAT, February 28, 2017, 14:01. INDICATIONS : Syncope. MEDICAL HISTORY : None. SURGICAL HISTORY : None. ENCOUNTER: Initial ACUITY: 1 day PAIN SCORE: 0/10 LOCATION: Bilateral chest FINDINGS: A single view of the chest demonstrates the lungs to be symmetrically aerated without evidence of mas s, infiltrate or effusion. Stable scattered scarring. The cardiomediastinal contours are unremarkabl e. Osseous structures are intact. CONCLUSION: 1. No active disease. Minimal scarring in the lungs. Jose Desouza MD on October 25, 2017 at 19:04 Board Certified Radiologist. This report was verified electronically.
--- NOTE | 2017-10-25 19:48 | RADRPT ---
EXAM DATE/TIME: 10/25/2017 18:43 [facility] COMPARISON: No previous studies available for comparison. INDICATIONS : Syncope. MEDICAL HISTORY : Hypertension. Gastroesophageal reflux disease. Glasses. Fibroids. Kidner stones. Arthritis. Osteopo rosis. Anemia. C-diff. SURGICAL HISTORY : Cholecystectomy. Hysterectomy. Bilateral cataract surgery. Sinus surgery. Oopherectomy. Right elbow surgery. ENCOUNTER: Initial ACUITY: 1 day PAIN SCORE: 0/10 LOCATION: Bilateral neck PEAK SYSTOLIC VELOCITIES (cm/sec): ICA/CCA RATIO: Right: 1.2 Left: 1.4 ICA: Right: 112.1 Left: 112.3 CCA: Right: 90.3 Left: 80.6 ECA: Right: 211.5 Left: 188.4 VERTEBRAL: Right: 82.7 antegrade Left: 56.4 antegrade Elevated flow velocities and ICA/CCA ratios have been found to correlate with increased degrees of vessel stenosis, calculated as percentage of diameter relative to a normal segment of distal ICA/CCA FINDINGS: RIGHT CAROTID: No significant stenosis is visualized. The waveforms are within normal limits. LEFT CAROTID: No significant stenosis is visualized. The waveforms are within normal limits. VERTEBRAL ARTERIES: Antegrade flow is seen in both vertebral arteries. MISCELLANEOUS: None. CONCLUSION: 1. Moderate plaque formation at the carotid bifurcations. No hemodynamically significant stenosis. Jose Desouza MD on October 25, 2017 at 19:44 Board Certified Radiologist. This report was verified electronically.
[2017-10-25] MEDS ORDERED: LORazepam 2 MG/ML VIAL IV PUSH ONE (20:00)
[2017-10-25] MEDS: SODIUM CHLORIDE 0.9% FLUSH 10 ML FLUSH IV FLUSH SCH (20:02)
[2017-10-25 20:06] VITALS: BP 148/84; PULSE 90; RESP 16; TEMP 99; O2SAT 96
[2017-10-25] MEDS: DOCUSATE SODIUM 50 MG/SENNA 8.6 MG TAB PO SCH (20:10)
[2017-10-25 21:19] VITALS: BP 144/76; PULSE 91; RESP 16; O2SAT 92
[2017-10-25] MEDS: buPROPion HCL 150 MG SUSTAINED RELEASE TAB PO SCH (21:20)
[2017-10-25] MEDS: METOPROLOL TARTRATE 100 MG TAB PO SCH (21:20)
[2017-10-25 21:27] VITALS: RESP 16; O2SAT 93
--- NOTE | 2017-10-25 21:43 | RADRPT ---
EXAM DATE/TIME: 10/25/2017 20:27 [facility] COMPARISON: No previous studies available for comparison. INDICATIONS : Right hand pain by thumb from fall. MEDICAL HISTORY : Small bowel obstruction. SURGICAL HISTORY : Cholecystectomy. Appendectomy. Hysterectomy. Hiatal hernia repair, Sinus sx, LSP fusion. ENCOUNTER: Initial ACUITY: 1 day PAIN SCORE: 9/10 LOCATION: Right hand, thumb region. TECHNIQUE: Multiplanar, multisequence MRI examination was performed without contrast. FINDINGS: There is some soft tissue swelling and questionable minimal bone edema in the distal phalanx of the t humb. No definite fracture or dislocation. There is also some soft tissue swelling over the thenar em inence and around the base of the thumb with questionable mild marrow edema on both sides of the firs t metacarpophalangeal joint. CONCLUSION: 1. Edema at the thenar eminence and in the subcutaneous soft tissues of the thumb with some questiona ble marrow edema at the first metacarpophalangeal joint and at the distal phalanx. No fracture or dis location identified. Jose Desouza MD on October 25, 2017 at 21:37 Board Certified Radiologist. This report was verified electronically.
[2017-10-26] VITALS (7 sets, daily range): BP systolic 138–179; BP diastolic 67–83; PULSE 64–82; RESP 16–21; TEMP 98.2–98.8; O2SAT 96–100
[2017-10-26] MEDS: oxyCODONE/ACETAMINOPHEN 10 MG/325 MG TAB PO PRN ×4 (01:34→22:40)
[2017-10-26] MEDS: HEPARIN SODIUM - SQ 10,000 UNITS/ML VIAL SQ SCH ×3 (01:35→18:08)
[2017-10-26] MEDS ORDERED: ENALAPRILAT 2.5 MG/2 ML VIAL IV PUSH ONE (04:15)
[2017-10-26] MEDS: SODIUM CHLOR 0.9% 1000 ML INJ 1,000 ML IV SCH (04:25)
[2017-10-26 05:22] LABS: ALBUMIN 2.7 GM/DL (3.4-5.0); ALT (GPT) 92 U/L (10-53); AST (GOT) 50 U/L (15-37); BICARBONATE 26.3 MEQ/L (21.0-32.0); BLOOD UREA NITROGEN 8 MG/DL (7-18); CALCIUM 8.2 MG/DL (8.5-10.1); CHLORIDE 107 MEQ/L (98-107); CREATININE 0.54 MG/DL (0.50-1.00); GLOMERULAR FILTRATION RATE 110 ML/MIN (>89); GLUCOSE,RANDOM 88 MG/DL (74-106); SODIUM (NA) 143 MEQ/L (136-145)
[2017-10-26 05:25] LABS: HEMATOCRIT 30.4 % (35.0-46.0); HEMOGLOBIN 9.4 GM/DL (11.6-15.3); MEAN CELL VOLUME 61.5 FL (80.0-100.0); MEAN CORPUSCULAR HGB CONC 30.9 % (32.0-36.0); MEAN PLATELET VOLUME 8.1 FL (7.0-11.0); PLATELET COUNT 294 TH/MM3 (150-450); RED BLOOD COUNT 4.94 MIL/MM3 (4.00-5.30); RED CELL DISTRIBUTION WIDTH 16.1 % (11.6-17.2); WHITE BLOOD COUNT 6.9 TH/MM3 (4.0-11.0)
[2017-10-26 05:49] LABS: ALKALINE PHOSPHATASE 187 U/L (45-117); TOTAL BILIRUBIN ADULT 0.7 MG/DL (0.2-1.0); TOTAL PROTEIN 5.6 GM/DL (6.4-8.2)
[2017-10-26 07:07] LABS: CORRECTED NUCLEATED RBC 1 /100 WBC (0-0); LYMPHOCYTES 10 % (9-44); MONOCYTES 4 % (0-8); NEUTROPHIL # MANUAL DIFF 5.6 TH/MM3 (1.8-7.7); NUCLEATED RED BLOOD CELL 1 (0-0); POLYS (SEG NEUTROPHILS) 81 % (16-70)
[2017-10-26 07:08] LABS: OVALOCYTES 1+ (NORMAL)
[2017-10-26 07:27] LABS: BACTERIA, URINE RARE /hpf; BILIRUBIN, URINE NEG (NEG); BLOOD, URINE TRACE (NEG); GLUCOSE,URINE NEG (NEG); KETONE, URINE 10 mg/dL (NEG); NITRITE,URINE NEG (NEG); SQUAMOUS EPITHELIAL CELL URINE 3 /hpf (0-5); TRANSITIONAL EPI CELLS, URINE 1 /hpf; URINE COLOR YELLOW (YELLW/STRAW); URINE LEUKOCYTE ESTERASE TRACE (NEG)
[2017-10-26] MEDS ORDERED: POTASSIUM CHLORIDE 20 MEQ CONTROLLED RELEASE TAB PO ONE (08:00)
--- NOTE | 2017-10-26 08:43 | MB ---
cc: Yury Muñoz MD DATE: 10/26/2017 HISTORY OF PRESENT ILLNESS: The patient is a 77-year-old right-handed woman with a history of hypertension. She tells me some arrhythmias, thalassemia minor, laminectomy, GERD, osteopenia, vitamin D deficiency, kidney stones, polymyalgia rheumatica, recurrent small bowel obstructions whom I am asked to see for falls and memory loss. She was going to the bathroom when she fell, evidently fractured the right thumb and right fibula. Her has been in rehab, she has been alone. She evidently has children locally. She evidently had some unsteady gait. MEDICATIONS AT HOME: 1. Norvasc. 2. Lopressor. 3. Flexeril. 4. Percocet. 5. Benazepril. 6. Nasal spray. 7. Temazepam. 8. Wellbutrin ER 300. 9. Rabeprazole. 10. Gabapentin 600 t.i.d. ALLERGIES: SULFA ASPIRIN, LATEX, AND PENICILLIN. SOCIAL HISTORY: Not a smoker or a drinker. Lives with her usually. FAMILY HISTORY: Positive for cancer in mother. Negative for seizure. Positive stroke in a grandmother. PHYSICAL EXAMINATION: VITAL SIGNS: Afebrile 68, 18, 170/80. NECK: There were no carotid bruits. HEART: Regular rhythm. I did not detect a murmur. NEUROLOGIC: Pupils are equal. Visual soares are full. Extraocular movements intact without nystagmus. She is status post cataract. Face is symmetric with normal sensation. Tongue was midline. She has got a wrap around her right thumb and wrist, but she seemed to move her upper and lower extremities normal bilaterally except the right distal below the knee is also casted in what appears to be a soft cast. The left toe is down. The right I cannot tell. Pinprick is intact in the toes bilaterally and in the hands, except she appears to have some decreased pinprick in the right median nerve distribution. She is awake and alert. She knows the year, not the month. She knows she is at [facility]. Short-term memory is 0/3 at 3 minutes. She is not aphasic. LABORATORY DATA: CBC shows a mild anemia, otherwise normal. Urine drug screen in the past was positive for barbiturates and benzos, but that was in 2011. UA here essentially normal. Coags normal. Basic metabolic profile is normal. AST is 50, ALT is 92. CPK 471, albumin 2.7. B12 and thyroid are normal. The increased LFTs are new for her. She had a chest x-ray that was normal. She had an ankle x-ray that showed a minimally displaced fracture of the distal fibula. Carotid ultrasound, moderate plaque, but negative for any significant stenosis. She had a finger x-ray, possible subluxation of the first MCP joint. She had a hand MRI, edema at the thenar eminence, questionable marrow edema. She had a head CT that was read as nothing acute. Review of those films, she does have some mild diffuse atrophy. No NPH is noted. No infarcts are seen. IMPRESSION: Some dementia status post falls. It is hard really for me to evaluate her gait now because of the fracture in her right lower extremity. PLAN: I will check some additional blood work on her, an EEG, an MRI of the brain and we can start her on some Namenda here. I will have to follow her long-term as an outpatient. Also, we will just put her on tele as she tells me she has a history of some arrhythmias. I defer to the med team on why her LFTs are elevated. From a neuro point of view, if her MRI is negative, she could be discharged and followup with me in the office. If she does not need to be, I would recommend stopping the Wellbutrin as that can lower the seizure threshold. It appears she does have some dementia, however. MD RASHAD Simon/REGINALDO , 08:21 AM , 08:42 AM
[2017-10-26] MEDS: CALCIUM/VITAMIN D 250 MG/125 U TAB PO SCH (08:44)
[2017-10-26] MEDS: LISINOPRIL 20 MG TAB PO SCH (08:46)
[2017-10-26] MEDS: PANTOPRAZOLE SOD 40 MG DELAYED RELEASE TAB PO SCH (08:46)
[2017-10-26] MEDS: buPROPion HCL 150 MG SUSTAINED RELEASE TAB PO SCH ×2 (08:47→22:27)
[2017-10-26] MEDS: METOPROLOL TARTRATE 100 MG TAB PO SCH ×2 (08:48→22:27)
[2017-10-26] MEDS: amLODIPine BESYLATE 5 MG TAB PO SCH (08:48)
[2017-10-26] MEDS: CHOLECALCIFEROL (VIT D3) 5000 UNIT CAP PO SCH (08:48)
[2017-10-26] MEDS: DOCUSATE SODIUM 50 MG/SENNA 8.6 MG TAB PO SCH ×2 (08:48→22:27)
[2017-10-26] MEDS: SODIUM CHLORIDE 0.9% FLUSH 10 ML FLUSH IV FLUSH SCH ×2 (08:49→22:31)
[2017-10-26] MEDS: GABAPENTIN 300 MG CAP PO SCH ×3 (08:49→18:08)
[2017-10-26] MEDS: FLUTICASONE PROPIONATE 50 MCG/ACT 16 GM NASAL SPRAY EACH NARE SCH ×2 (08:49→22:27)
--- NOTE | 2017-10-26 08:52 | HHI.PR ---
Subjective Remarks Follow up for fall, syncope, fibula fracture, thumb subluxation. The patient is awake, alert, oriented to person, [place], and year 2017. She admits to feeling forgetful recently. She states currently her ankle and hand pain is under control s/p pain medications. Denies any lightheadedness, dizziness, chest pain , palpitations, shortness of breath, abdominal pain, nausea/vomiting, or urinary complaints. She states her is currently at rehab and the patient is now living alone. She states they were in the process of arranging 24hour care in the home but this is not set up currently. She agrees to short term rehab placement if needed. She has no other medical complaints at this time. Objective Vitals Vital Signs Date Time Temp Pulse Resp B/P (MAP) Pulse Ox O2 Delivery O2 Flow Rate FiO2 10/26/17 07:58 98.6 68 18 170/80 (110) 100 10/26/17 05:30 98.3 75 16 179/83 (115) 100 10/26/17 03:58 98.3 64 16 173/79 (110) 100 10/26/17 00:29 98.2 82 16 166/78 (107) 97 10/25/17 21:27 16 93 10/25/17 21:19 91 16 144/76 (98) 92 10/25/17 20:06 99.0 90 16 148/84 (105) 96 10/25/17 18:42 98.6 92 16 167/78 (107) 96 10/25/17 13:23 99.5 92 16 178/90 (119) 96 I/O 10/25/17 10/25/17 10/25/17 10/26/17 10/26/17 10/26/17 07:00 15:00 23:00 07:00 15:00 23:00 Intake Total 500 ml Balance 500 ml Intake IV Total 500 ml Bladder Scan Volume Amount 513 ml Result Diagram: 10/26/17 0410 10/26/17 0410 Imaging Last Impressions Chest X-Ray 10/25/17 1800 Signed Impressions: Service Date/Time: October 18:33 - CONCLUSION: 1. No active disease. Minimal scarring in the lungs. Jose Desouza MD Head CT 10/25/17 0000 Signed Impressions: Service Date/Time: October 14:41 - CONCLUSION: 1. No acute intracranial abnormality identified. Royce Venegas MD Hand MRI 10/25/17 Signed Impressions: Service Date/Time: October 20:27 - CONCLUSION: 1. Edema at the thenar eminence and in the subcutaneous soft tissues of the thumb with some questionable marrow edema at the first metacarpophalangeal joint and at the distal phalanx. No fracture or dislocation identified. Jose Desouza MD Foot X-Ray 10/25/17 Signed Impressions: Service Date/Time: October 13:53 - CONCLUSION: No evidence of recent bony injury. Mike Tucker MD Finger X-Ray 10/25/17 Signed Impressions: Service Date/Time: October 13:48 - CONCLUSION: Possible partial subluxation of the 1st MCP joint. No fracture seen. Mike Tucker MD Carotid Artery Ultrasound 10/25/17 Signed Impressions: Service Date/Time: October 18:43 - CONCLUSION: 1. Moderate plaque formation at the carotid bifurcations. No hemodynamically significant stenosis. Jose Desouza MD Ankle X-Ray 10/25/17 Signed Impressions: Service Date/Time: October 13:56 - CONCLUSION: Minimally displaced oblique fracture of the distal fibula. Mike Tucker MD Objective Remarks GENERAL: Well-nourished, well-developed pleasant elderly female patient in [facility]. SKIN: Warm and dry. No rash. Ecchymosis to bilateral anterior knees. HEENT: Normocephalic. Atraumatic.Pupils equal and round. Mucous membranes pink and moist. CARDIOVASCULAR: Regular rate and rhythm. No murmur appreciated. RESPIRATORY: No accessory muscle use. Clear to auscultation. Breath sounds equal bilaterally. GASTROINTESTINAL: Abdomen soft, non-tender, nondistended. Normoactive bowel sounds x4. MUSCULOSKELETAL: No obvious deformities. Extremities without clubbing, cyanosis , or edema. RUE in splint, distal right finger sensation intact with brisk capillary refill. RLE in splint, toe sensation intact with brisk capillary refill. NEUROLOGICAL: Awake and alert. No obvious cranial nerve deficits. Motor grossly within normal limits. 5/5 muscle strength of LUE/LLE. Normal speech. PSYCHIATRIC: Appropriate mood and affect; insight and judgment normal. Medications and IVs Current Medications Medications (Trade) Dose Ordered Sig/Shauna Route Start Time Stop Time Status Last Admin Sodium Chloride 1,000 ml @ 100 mls/hr Q10H IV 10/25/17 18:00 10/26/17 04:25 (NS Flush) 2 ml UNSCH PRN IV FLUSH 10/25/17 18:00 (NS Flush) 2 ml BID IV FLUSH 10/25/17 21:00 (Tylenol) 650 mg Q4H PRN PO 10/25/17 18:00 (Zofran Inj) 4 mg Q6H PRN IVP 10/25/17 18:00 (Heparin Inj) 5,000 units Q8H SQ 10/25/17 18:00 10/26/17 11:05 (Narcan Inj) 0.4 mg UNSCH PRN IV PUSH 10/25/17 18:00 (Macarena-Colace) 1 tab BID PO 10/25/17 21:00 10/26/17 08:48 (Milk Of Magnesia Liq) 30 ml Q12H PRN PO 10/25/17 18:00 (Senokot) 17.2 mg Q12H PRN PO 10/25/17 18:00 (Dulcolax Supp) 10 mg DAILY PRN RECTAL 10/25/17 18:00 (Lactulose Liq) 30 ml DAILY PRN PO 10/25/17 18:00 (Norvasc) 5 mg DAILY PO 10/26/17 09:00 10/26/17 08:48 (Vitamin D3) 5,000 units DAILY PO 10/26/17 09:00 10/26/17 08:48 (Neurontin) 600 mg TID PO 10/26/17 09:00 10/26/17 13:44 (Lopressor) 100 mg Q12HR PO 10/25/17 21:00 10/26/17 08:48 (Restoril) 30 mg HS PRN PO 10/25/17 18:45 (Morphine Inj) 2 mg Q3H PRN IV PUSH 10/25/17 19:00 (Percocet 5-325 Mg) 1 tab Q6H PRN PO 10/25/17 19:00 (Percocet 10-325 Mg) 1 tab Q6H PRN PO 10/25/17 19:00 10/26/17 08:06 (Protonix) 40 mg DAILY PO 10/26/17 09:00 10/26/17 08:46 (Wellbutrin Sr) 150 mg BID PO 10/25/17 21:00 10/26/17 08:47 (Oscal-D 250-125) 500 mg DAILY PO 10/26/17 09:00 10/26/17 08:44 (Flonase José Spr) 1 spray BID EACH NARE 10/26/17 09:00 10/26/17 08:49 (Prinivil) 40 mg DAILY PO 10/26/17 09:00 10/26/17 08:46 (Namenda) 5 mg DAILY PO 10/26/17 10:00 11/02/17 09:59 10/26/17 11:05 (Namenda) 5 mg BID PO 11/02/17 09:00 11/09/17 08:59 (Namenda) 10 mg BID PO 11/09/17 09:00 A/P Problem List: (1) Fracture of distal fibula ICD Code: S82.839A - Other fracture of upper and lower end of unspecified fibula, initial encounter for closed fracture Status: Acute (2) Subluxation of thumb ICD Code: S63.103A - Unspecified subluxation of unspecified thumb, initial encounter Status: Acute (3) Memory changes ICD Code: R41.3 - Other amnesia Status: Acute Assessment and Plan 77-year-old female with past medical history significant for, HTN, HLD, osteopenia, GERD, thalassemia minor, and laminectomy in February of 2017 who presents to the ER with complaints of right ankle and right thumb pain after falling today at home. Patient reports that she was getting up to make her way to the bathroom when she fell. Fall, Syncope: patient with recurrent falls, questionable syncopal episode -CBC reviewed with microcytic anemia, patient with a history of thalassemia minor. BMP unremarkable -CK 471, appears mildly dehydrated, give IV fluids -CT reviewed and unremarkable for any acute findings -Rule out infectious process, CXR and UA unremarkable -Carotid U/S with moderate plaque, no significant stenosis -Unable to do standing orthostatic BP secondary to right ankle fracture -await weight bearing status recommendations from ortho, then obtain PT/OT evaluations, may need rehab Memory loss Unsteady gait -Head CT negative, labs unremarkable with the exception of microcytic anemia -TSH wnl, B12 wnl -Consult neurology, appreciate recommendations -Brain MRI pending Right distal fibula fracture Right thumb subluxation -Ankle x-ray reviewed, minimally displaced oblique fracture of the distal fibula. -X-ray of right hand reviewed, possibly partial subluxation of first MCP joint, no fracture. -Splints placed to right ankle and right hand -Hand surgery consulted, orthopedic services consulted -Pain control with [place], IV morphine for breakthrough pain. -PT/OT Hypertension -Continue home dose amlodipine and metoprolol -BP elevated, possibly secondary to pain, continue to monitor, consider increasing antihypertensives Depression -continue home dose bupropion DVT prophylaxis- heparin sq Problem Qualifiers (1) Fracture of distal fibula: Qualified Codes: S82.831A - Other fracture of upper and lower end of right fibula, initial encounter for closed fracture (2) Subluxation of thumb: Qualified Codes: S63.101A - Unspecified subluxation of right thumb, initial encounter Roseline Quiroz PA-C October 26, 2017 8:52 am
[2017-10-26] MEDS ORDERED: CALCIUM CARBONATE PO SCH (09:00)
[2017-10-26] MEDS ORDERED: RABEprazole SODIUM 20 MG DELAYED RELEASE TAB PO SCH (09:00)
[2017-10-26] MEDS ORDERED: VITAMIN D3 PO SCH (09:00)
[2017-10-26] MEDS ORDERED: buPROPion HCL 150 MG EXTENDED RELEASE TAB PO SCH (09:00)
[2017-10-26 10:56] LABS: TROPONIN I LESS THAN 0.02 NG/ML (0.02-0.05)
[2017-10-26 10:57] LABS: FOLATE GREATER THAN 20.0 NG/ML (3.1-17.5)
[2017-10-26] MEDS: MEMANTINE HCL 5 MG TAB PO SCH (11:05)
[2017-10-26] MEDS ORDERED: LORazepam 2 MG/ML VIAL IV PUSH ONE (14:30)
--- NOTE | 2017-10-26 16:33 | MG ---
cc: Yury Muñoz MD, David J MD [phone] Fall. Namenda, Norvasc, Wellbutrin, Ativan. INTERPRETATION: A 6 to 6.5 Hz diffuse rhythm is seen. The recording overall is synchronous and symmetric. I do not see any epileptiform and seizure activity. No hemisphere asymmetry is noted. Hyperventilation is not performed. Photic stimulation is performed without significant posterior driving. IMPRESSION: Mild diffuse slowing consistent with a mild diffuse encephalopathy, but no focal abnormality was noted. No seizure activity is seen. Yury Starr. MD RASHAD Muñoz/ , 04:14 PM , 04:32 PM
[2017-10-26] MEDS ORDERED: GADODIAMIDE PF 287 MG/ML 5 ML VIAL (for RAD MRI) IVCONTRAST ONE (16:38)
--- NOTE | 2017-10-26 17:18 | RADRPT ---
EXAM DATE/TIME: 10/26/2017 16:24 [place] COMPARISON: No previous studies available for comparison. INDICATIONS : CVA. CONTRAST: 13 cc Omniscan (gadodiamide) IV MEDICAL HISTORY : Small bowel obstruction. SURGICAL HISTORY : Appendectomy. Hysterectomy. Cholecystectomy. Sinus Sx, Hiatal Hernia, [place] LSP. ENCOUNTER: Initial ACUITY: 1 day PAIN SCORE: 3/10 LOCATION: Bilateral cranial TECHNIQUE: Multiplanar, multisequence MRI of the brain was performed both prior to and following the administrat ion of paramagnetic contrast. FINDINGS: CEREBRUM: Mild diffuse renal atrophy. The ventricles are normal for degree of atrophy. No evidence of midline shift, mass lesion, hemorrhage or acute infarction. No extraaxial fluid collections are seen. The p ituitary gland and suprasellar cistern are normal in configuration. WHITE MATTER: Mild to moderate periventricular and focal deep white matter T2 prolongation. POSTERIOR FOSSA: The cerebellum and brainstem are intact. The 4th ventricle is midline. The cerebellopontine angle is unremarkable. The cerebellar tonsils are normal in position. DIFFUSION IMAGING: No focal areas of restricted diffusion are seen. No evidence of acute infarction. EXTRACRANIAL: The visualized portions of the orbits and paranasal sinuses are unremarkable. POST-CONTRAST: No abnormal areas of parenchymal or dural enhancement. No evidence of blood-brain barrier breakdown. CONCLUSION: 1. Senescent changes with mild to moderate periventricular small vessel ischemic white matter [place]. 2. No acute abnormality. Specifically, no acute infarction, hemorrhage or mass. Jeff Wren MD on October 26, 2017 at 17:13 Board Certified Radiologist. This report was verified electronically.
[2017-10-27] VITALS (7 sets, daily range): BP systolic 116–156; BP diastolic 57–92; PULSE 61–80; RESP 17–19; TEMP 97.5–98.3; O2SAT 93–97
--- NOTE | 2017-10-27 00:27 | MB ---
cc: Kelly Monge MD DATE: 10/26/2017 REASON FOR COMPLAINT: Right thumb pain. HISTORY OF PRESENT ILLNESS: Kami Horne is a very pleasant 77-year-old [id number] female who denies prior significant injury to the right hand, who states that she got up yesterday evening on 10/25/2017 to go to the bathroom when she slipped and fell. She denies any syncopal episodes. She reports pain over the right thumb and right ankle. Her is currently in rehab and she is at home alone. She was admitted for observation. She reports pain over the right thumb. PAST MEDICAL HISTORY: Hypertension, GERD, hyperlipidemia, thalassemia minor, vitamin D deficiency, kidney stones, polymyalgia rheumatica. PAST SURGICAL HISTORY: Sinus surgery, hysterectomy, cholecystectomy, lysis of adhesions, cataract surgery, L4-L5. MEDICATIONS: 1. Norvasc. 2. Lopressor. 3. Flexeril. 4. Percocet. 5. Benazepril. 6. Bupropion. 7. Gabapentin. 8. Prolia. ALLERGIES: SULFA, ASPIRIN, LATEX, PENICILLIN G. SOCIAL HISTORY: Retired. Denies tobacco, alcohol or drug use. PHYSICAL EXAMINATION: The patient is alert and oriented. Splint in place over the right upper extremity with swelling of the fingers. Splint removed. Good range of motion of the index through the small fingers. Sensation intact in the median, ulnar, radial distribution. 2+ radial pulse. Tenderness over the right thumb MP joint, but the patient is able to extend and flex the thumb. Mild instability of the radial and ulnar collateral ligaments, but no gross instability. IMAGING: X-ray of the right thumb shows evidence of some subluxation of the right thumb MP joint. MRI shows a sprain of the radial and ulnar collateral ligaments without complete tear. ASSESSMENT AND PLAN: A 77-year-old female with subluxation and sprain of the right thumb MP joint. Treatment options discussed with the patient including surgical intervention versus splinting. The patient wishes to proceed with splinting. A new splint will be applied by the school laboratory technician, slightly looser, as the patient had swelling over the hand. She is to be nonweightbearing over the right thumb and should continue to use the platform walker. She may be discharged from a hand surgery standpoint and should follow up in the office in the next 1-2 weeks. MD LOR Tejada , 11:24 PM , 12:26 AM JAMMIE
[2017-10-27] MEDS: HEPARIN SODIUM - SQ 10,000 UNITS/ML VIAL SQ SCH ×3 (01:36→18:28)
[2017-10-27] MEDS: oxyCODONE/ACETAMINOPHEN 10 MG/325 MG TAB PO PRN ×3 (04:53→20:25)
--- NOTE | 2017-10-27 07:38 | MB ---
cc: Ollie Lincoln MD DATE: 10/27/2017 CONSULTING PROVIDER: Dr. Carlos Roberts. REASON FOR CONSULTATION: Right distal fibula fracture. HISTORY OF PRESENT ILLNESS: Kami is a 77-year-old female who has a history of hypertension, high cholesterol, osteopenia and reflux. She fell at home today. She was going to the bathroom when she lost her balance and fell. She denies dizziness, syncope, or loss of consciousness. She had difficulty standing and ambulating because her right ankle pain. She also sustained an injury to her right hand. Hand surgery has been consulted for her thumb. She lives at home alone. Her was recently moved to a [facility]. She is currently awake and alert on the orthopedic floor. She complains of right hand and right ankle pain. The pain is improved with rest and is worse with movement. PAST MEDICAL HISTORY: Hypertension, reflux, high cholesterol, thalassemia minor, vitamin D deficiency, kidney stones, polymyalgia rheumatica, sinusitis. PAST SURGICAL HISTORY: Hysterectomy, cholecystectomy, lysis of adhesions, cataract surgery, L4-L5 fusion with laminectomy. MEDICATIONS: 1. Norvasc. 2. Lopressor. 3. Flexeril. 4. Percocet. 5. Benazepril. 6. Fluticasone. 7. Temazepam. 8. Bupropion. 9. Calcium. 10. Rabeprazole. 11. Vitamin D. 12. Gabapentin. 13. Prolia. 14. Premarin. ALLERGIES: 1. SULFA 2. ASPIRIN 3. LATEX, 4. PENICILLIN. FAMILY HISTORY: Positive for cancer in a grandmother. SOCIAL HISTORY: The patient lives alone. Her recently moved to the [facility]. The patient denies alcohol, tobacco or drug use. REVIEW OF SYSTEMS: The patient denies headache, visual changes, neck pain, chest pain, shortness of breath, abdominal pain, nausea, vomiting, recent weight loss, fever, chills, numbness or tingling in the extremities, or recent weight loss. She complains of right ankle pain and right wrist pain. PHYSICAL EXAMINATION: GENERAL: The patient is a pleasant 77-year-old female. She is awake and alert. She is thin but appears well-nourished. She is in no acute distress. VITAL SIGNS: Temperature 98.0, pulse 78, respirations 19, blood pressure 140/92, O2 saturation 97% on room air. HEENT: Head: The patient is normocephalic. Pupils are equal. NECK: Soft, nontender. The trachea is in the midline. ABDOMEN: Soft, nontender, and nondistended. EXTREMITIES: Examination of right arm reveals no pain with shoulder or elbow motion. She has a splint on her right hand. She has good cap refill in all her fingers. Sensation is intact to radial, ulnar, and median nerve distributions. Examination of left arm reveals no pain with shoulder, elbow, or wrist motion. Skin is intact. Radial pulse is palpable. Sensation is intact. Examination of left leg reveals no pain with hip, knee, or ankle motion. Skin is intact. Dorsalis pedis pulse is palpable. Sensation is intact. Examination of right leg reveals no pain with hip or knee motion. She has a well-padded splint on her right ankle. She has good cap refill in her toes. Skin is intact. LABORATORY DATA: The patient has a white blood cell count of 6.9, hematocrit of 30.4, platelet count of 294. INR is 1.0, BUN is 8, creatinine 0.54. IMAGING STUDIES: X-rays of the right ankle reviewed. X-rays reveal a minimally displaced right distal fibula fracture. There is no widening of the medial clear space or syndesmosis. IMPRESSION: 1. Minimally displaced right distal fibula fracture. 2. Hypertension. 3. Osteopenia. 4. Reflux. PLAN: The treatment options were discussed with the patient. At this point, she will remain in a splint. She will need to use a walker. She may partial weightbear when ambulating. She will need to follow up in the office in 1-2 weeks. I will plan on transitioning her to a fracture boot at that time. She understands that if the fracture displaces significantly, surgical intervention may become necessary. All questions were answered. A mid-level provider in my office, nurse practitioner or PA, may see this patient on a follow-up basis and continue to implement the objective of this plan including: Starting or adjusting medications, injections of muscle, tendon, bursa or joints, cast application, orthotic or brace application, physical therapy, further radiographic studies including x-ray, MRI, CT, ultrasounds or bone scan, vascular studies, neurologic studies, or other specialist consultations, and proceeding with surgical management as appropriate. MD CATALINA Wood/ASHLEY , 07:08 AM , 07:37 AM
[2017-10-27] MEDS: DOCUSATE SODIUM 50 MG/SENNA 8.6 MG TAB PO SCH ×2 (09:00→20:23)
[2017-10-27] MEDS: FLUTICASONE PROPIONATE 50 MCG/ACT 16 GM NASAL SPRAY EACH NARE SCH ×2 (09:00→20:26)
[2017-10-27] MEDS: CALCIUM/VITAMIN D 250 MG/125 U TAB PO SCH (09:32)
[2017-10-27] MEDS: PANTOPRAZOLE SOD 40 MG DELAYED RELEASE TAB PO SCH (09:32)
[2017-10-27] MEDS: SODIUM CHLORIDE 0.9% FLUSH 10 ML FLUSH IV FLUSH SCH ×2 (09:32→20:26)
[2017-10-27] MEDS: GABAPENTIN 300 MG CAP PO SCH ×3 (09:32→18:29)
[2017-10-27] MEDS: buPROPion HCL 150 MG SUSTAINED RELEASE TAB PO SCH ×2 (09:32→20:24)
[2017-10-27] MEDS: amLODIPine BESYLATE 5 MG TAB PO SCH (09:32)
[2017-10-27] MEDS: LISINOPRIL 20 MG TAB PO SCH (09:33)
[2017-10-27] MEDS: MEMANTINE HCL 5 MG TAB PO SCH (09:33)
[2017-10-27] MEDS: CHOLECALCIFEROL (VIT D3) 5000 UNIT CAP PO SCH (09:33)
[2017-10-27] MEDS: METOPROLOL TARTRATE 100 MG TAB PO SCH ×2 (09:33→20:23)
--- NOTE | 2017-10-27 09:59 | HHI.PR ---
Objective Vital Signs Date Time Temp Pulse Resp B/P (MAP) Pulse Ox O2 Delivery O2 Flow Rate FiO2 10/27/17 08:18 97.8 65 18 143/65 (91) 97 10/27/17 04:00 98.0 78 19 140/92 (108) 97 10/27/17 00:00 97.8 80 17 156/76 (102) 95 10/26/17 20:00 98.3 75 21 167/82 (110) 96 10/26/17 18:18 96 Room Air 10/26/17 16:00 73 10/26/17 14:57 98.8 68 20 138/67 (90) 100 I/O 10/26/17 10/26/17 10/26/17 10/27/17 10/27/17 10/27/17 07:00 15:00 23:00 07:00 15:00 23:00 Intake Total 1250 ml 600 ml Output Total 400 ml Balance 850 ml 600 ml Intake Oral 250 ml 600 ml IV Total 1000 ml Output Urine Total 400 ml Bladder Scan Volume Amount 513 ml 100 ml # Voids 2 3 1 3 # Bowel Movements 1 1 Result Diagram: 10/26/17 0410 10/26/17 0410 Objective Remarks knows month and day moves b toes well Assessment and Plan Assessment and Plan imp mri neg eeg nl labs ok on namenda check mri c spine with falls fu office no nph Yuyr Muñoz MD October 27, 2017 09:59
[2017-10-27] MEDS: SODIUM CHLOR 0.9% 1000 ML INJ 1,000 ML IV SCH ×2 (10:00→20:00)
--- NOTE | 2017-10-27 10:14 | HHI.PR ---
Subjective Remarks Follow up for fall, syncope, fibula fracture, thumb subluxation. Patient is resting in bed. No acute concerns. No fever, chills. Objective Vitals Vital Signs Date Time Temp Pulse Resp B/P (MAP) Pulse Ox O2 Delivery O2 Flow Rate FiO2 10/27/17 08:18 97.8 65 18 143/65 (91) 97 10/27/17 04:00 98.0 78 19 140/92 (108) 97 10/27/17 00:00 97.8 80 17 156/76 (102) 95 10/26/17 20:00 98.3 75 21 167/82 (110) 96 10/26/17 18:18 96 Room Air 10/26/17 16:00 73 10/26/17 14:57 98.8 68 20 138/67 (90) 100 I/O 10/26/17 10/26/17 10/26/17 10/27/17 10/27/17 10/27/17 07:00 15:00 23:00 07:00 15:00 23:00 Intake Total 1250 ml 600 ml Output Total 400 ml Balance 850 ml 600 ml Intake Oral 250 ml 600 ml IV Total 1000 ml Output Urine Total 400 ml Bladder Scan Volume Amount 513 ml 100 ml # Voids 2 3 1 3 # Bowel Movements 1 1 Result Diagram: 10/26/17 0410 10/26/17 0410 Imaging Last Impressions Cervical Spine MRI 10/27/17 0000 Signed Impressions: Service Date/Time: Friday, October 27, 2017 11:44 - CONCLUSION: Prominent multilevel degenerative findings of the cervical spine. Broad-based disc osteophyte complex results in moderate central canal narrowing at C5-6. There is effacement of CSF anteriorly and posteriorly. No evidence of spinal cord deformity. No abnormal spinal cord signal seen. Neural foraminal narrowing at multiple levels. Gil Dugan MD Brain MRI 10/26/17 0817 Signed Impressions: Service Date/Time: Thursday, October 26, 2017 16:24 - CONCLUSION: 1. Senescent changes with mild to moderate periventricular small vessel ischemic white matter demyelination. 2. No acute abnormality. Specifically, no acute infarction, hemorrhage or mass. Jeff Wren MD Chest X-Ray 10/25/17 1800 Signed Impressions: Service Date/Time: October 18:33 - CONCLUSION: 1. No active disease. Minimal scarring in the lungs. Jose Desouza MD Head CT 10/25/17 Signed Impressions: Service Date/Time: October 14:41 - CONCLUSION: 1. No acute intracranial abnormality identified. Royce Venegas MD Hand MRI 10/25/17 Signed Impressions: Service Date/Time: October 20:27 - CONCLUSION: 1. Edema at the thenar eminence and in the subcutaneous soft tissues of the thumb with some questionable marrow edema at the first metacarpophalangeal joint and at the distal phalanx. No fracture or dislocation identified. Jose Desouza MD Foot X-Ray 10/25/17 Signed Impressions: Service Date/Time: October 13:53 - CONCLUSION: No evidence of recent bony injury. Mike Tucker MD Finger X-Ray 10/25/17 Signed Impressions: Service Date/Time: October 13:48 - CONCLUSION: Possible partial subluxation of the 1st MCP joint. No fracture seen. Mike Tucker MD Carotid Artery Ultrasound 10/25/17 Signed Impressions: Service Date/Time: October 18:43 - CONCLUSION: 1. Moderate plaque formation at the carotid bifurcations. No hemodynamically significant stenosis. Jose Desouza MD Ankle X-Ray 10/25/17 Signed Impressions: Service Date/Time: October 13:56 - CONCLUSION: Minimally displaced oblique fracture of the distal fibula. Mike Tucker MD Objective Remarks GENERAL: Alert, NAD. SKIN: Warm and dry. HEAD: Normocephalic. EYES: No scleral icterus. No injection or drainage. NECK: Supple, trachea midline. No JVD or lymphadenopathy. CARDIOVASCULAR: Regular rate and rhythm without murmurs, gallops, or rubs. RESPIRATORY: Breath sounds equal bilaterally. No accessory muscle use. GASTROINTESTINAL: Abdomen soft, non-tender, nondistended. MUSCULOSKELETAL: No cyanosis, or edema. RLE splint present. BACK: Nontender without obvious deformity. No CVA tenderness. Procedures None. A/P Problem List: (1) Fracture of distal fibula ICD Code: S82.839A - Other fracture of upper and lower end of unspecified fibula, initial encounter for closed fracture Status: Acute (2) Subluxation of thumb ICD Code: S63.103A - Unspecified subluxation of unspecified thumb, initial encounter Status: Acute (3) Memory changes ICD Code: R41.3 - Other amnesia Status: Acute Assessment and Plan 77-year-old female with past medical history significant for, HTN, HLD, osteopenia, GERD, thalassemia minor, and laminectomy in February of 2017 who presents to the ER with complaints of right ankle and right thumb pain after falling today at home. Patient reports that she was getting up to make her way to the bathroom when she fell. Fall, Syncope: patient with recurrent falls, questionable syncopal episode -CK 471, continue IV fluids -CT reviewed and unremarkable for any acute findings -CXR and UA unremarkable -Carotid U/S with moderate plaque, no significant stenosis -Neurology evaluated patient, extensive work up done. Memory loss Unsteady gait -Head CT negative, labs unremarkable with the exception of microcytic anemia -TSH 0.689, B12 725. -Consult neurology, appreciate recommendations -Brain MRI unremarkable for any acute findings. Right distal fibula fracture Right thumb subluxation -Ankle x-ray reviewed, minimally displaced oblique fracture of the distal fibula. -X-ray of right hand reviewed, possibly partial subluxation of first MCP joint, no fracture. -Splints placed to right ankle and right hand -Hand surgery recommended outpatient follow up, orthopedic surgery also recommended splint for now and follow up in the outpatient setting for any future surgical interventions. -Pain control with [place], IV morphine for breakthrough pain. -PT/OT Hypertension -Continue home dose amlodipine and metoprolol -BP well controlled. Depression -continue home dose bupropion DVT prophylaxis- heparin sq Problem Qualifiers (1) Fracture of distal fibula: Qualified Codes: S82.831A - Other fracture of upper and lower end of right fibula, initial encounter for closed fracture (2) Subluxation of thumb: Qualified Codes: S63.101A - Unspecified subluxation of right thumb, initial encounter Stefan Benito DO October 27, 2017 10:14 am
[2017-10-27] MEDS ORDERED: LORazepam 2 MG/ML VIAL IV PUSH ONE (10:15)
--- NOTE | 2017-10-27 12:51 | RADRPT ---
EXAM DATE/TIME: 10/27/2017 11:44 [place] COMPARISON: No previous studies available for comparison. INDICATIONS : Frequent falls. MEDICAL HISTORY : Hypertension. Hernia, hiatal. SURGICAL HISTORY : Hysterectomy. Fusion, lumbar. Appendectomy. ENCOUNTER: Initial ACUITY: 3 day PAIN SCORE: 0/10 LOCATION: Right [place] TECHNIQUE: Multiplanar, multisequence MRI examination of the cervical spine was performed. FINDINGS: VERTEBRAE: Normal vertebral body height. Homogeneous marrow signal. ALIGNMENT: No evidence of subluxation. CORD: Normal configuration and signal. POST FOSSA: The cerebellar tonsils are normal in position. C2-C3: Bilateral facet arthrosis. No evidence of focal disc protrusion. Mild left neural foraminal narrowing . Central canal diameter within normal limits. C3-C4: Moderate severity left-sided facet arthrosis. No evidence of focal disc protrusion. Central canal france meter and neural foraminal diameters within normal limits. C4-C5: Broad-based disc osteophyte complex and mild bilateral facet arthrosis. Minimal central canal narrowi ng. Severe left neural foraminal narrowing. Mild right neural foraminal narrowing. C5-C6: Broad-based disc osteophyte complex resulting in effacement of CSF anteriorly and posteriorly. No nicole dence of spinal cord deformity. Severe left and moderate right neural foraminal narrowing. Mild bilat eral facet arthrosis. C6-C7: Broad-based disc osteophyte complex. Moderate left neural foraminal narrowing. Mild right neuroforami nal narrowing. Central canal diameter within normal limits. C7-T1: Bilateral facet arthrosis. Central canal diameter and neural foraminal diameters within normal limits . CONCLUSION: Prominent multilevel degenerative findings of the cervical spine. Broad-based disc osteophyte complex results in moderate central canal narrowing at C5-6. There is effacement of CSF anteriorly and poste riorly. No evidence of spinal cord deformity. No abnormal spinal cord signal seen. Neural foraminal n arrowing at multiple levels. Gil Dugan MD on October 27, 2017 at 12:46 Board Certified Radiologist. This report was verified electronically.
[2017-10-28] VITALS (7 sets, daily range): BP systolic 118–162; BP diastolic 58–85; PULSE 67–86; RESP 16–18; TEMP 97.9–98.8; O2SAT 95–98
[2017-10-28] MEDS: HEPARIN SODIUM - SQ 10,000 UNITS/ML VIAL SQ SCH ×3 (01:47→17:07)
[2017-10-28] MEDS: oxyCODONE/ACETAMINOPHEN 10 MG/325 MG TAB PO PRN ×5 (01:48→21:10)
[2017-10-28] MEDS: SODIUM CHLOR 0.9% 1000 ML INJ 1,000 ML IV SCH ×2 (01:51→16:00)
[2017-10-28] MEDS: CHOLECALCIFEROL (VIT D3) 5000 UNIT CAP PO SCH (08:17)
[2017-10-28] MEDS: PANTOPRAZOLE SOD 40 MG DELAYED RELEASE TAB PO SCH (08:17)
[2017-10-28] MEDS: buPROPion HCL 150 MG SUSTAINED RELEASE TAB PO SCH ×2 (08:17→21:08)
[2017-10-28] MEDS: MEMANTINE HCL 5 MG TAB PO SCH (08:18)
[2017-10-28] MEDS: DOCUSATE SODIUM 50 MG/SENNA 8.6 MG TAB PO SCH ×2 (08:18→21:08)
[2017-10-28] MEDS: METOPROLOL TARTRATE 100 MG TAB PO SCH ×2 (08:18→21:00)
[2017-10-28] MEDS: amLODIPine BESYLATE 5 MG TAB PO SCH (08:18)
[2017-10-28] MEDS: CALCIUM/VITAMIN D 250 MG/125 U TAB PO SCH (08:18)
[2017-10-28] MEDS: GABAPENTIN 300 MG CAP PO SCH ×3 (08:19→17:06)
[2017-10-28] MEDS: LISINOPRIL 20 MG TAB PO SCH (08:19)
[2017-10-28] MEDS: SODIUM CHLORIDE 0.9% FLUSH 10 ML FLUSH IV FLUSH SCH ×2 (08:20→21:08)
[2017-10-28] MEDS: FLUTICASONE PROPIONATE 50 MCG/ACT 16 GM NASAL SPRAY EACH NARE SCH ×2 (08:20→21:08)
--- NOTE | 2017-10-28 09:38 | HHI.PR ---
Objective Vital Signs Date Time Temp Pulse Resp B/P (MAP) Pulse Ox O2 Delivery O2 Flow Rate FiO2 10/28/17 09:22 18 10/28/17 08:10 98.1 81 16 162/85 (110) 98 10/28/17 03:34 98.2 74 17 122/60 (80) 95 10/27/17 22:49 98.3 61 18 131/63 (85) 93 10/27/17 19:36 98.0 77 18 135/81 (99) 96 10/27/17 16:34 97.5 73 18 116/57 (76) 94 10/27/17 12:08 98.1 66 17 149/65 (93) 97 I/O 10/27/17 10/27/17 10/27/17 10/28/17 10/28/17 10/28/17 07:00 15:00 23:00 07:00 15:00 23:00 Intake Total 600 ml 1200 ml 360 ml Balance 600 ml 1200 ml 360 ml Intake Oral 600 ml 1200 ml 360 ml # Voids 3 8 3 # Bowel Movements 2 0 Result Diagram: 10/26/17 0410 10/26/17 0410 Objective Remarks knows where she is and location Assessment and Plan Assessment and Plan imp mri neg eeg nl labs ok on namenda check mri c spine with falls neg fu office no nph will sign off Yury Muñoz MD October 28, 2017 09:38
[2017-10-28] MEDS ORDERED: oxyCODONE/ACETAMINOPHEN 5 MG/325 MG TAB PO PRN (10:15)
--- NOTE | 2017-10-28 13:37 | HHI.PR ---
Subjective Remarks Follow up for fall, syncope, fibula fracture, thumb subluxation. Patient is currently doing well. No fever, chills. No acute concerns. Objective Vitals Vital Signs Date Time Temp Pulse Resp B/P (MAP) Pulse Ox O2 Delivery O2 Flow Rate FiO2 10/28/17 12:23 98.3 72 18 124/62 (82) 96 10/28/17 09:22 18 10/28/17 08:10 98.1 81 16 162/85 (110) 98 10/28/17 03:34 98.2 74 17 122/60 (80) 95 10/27/17 22:49 98.3 61 18 131/63 (85) 93 10/27/17 19:36 98.0 77 18 135/81 (99) 96 10/27/17 16:34 97.5 73 18 116/57 (76) 94 I/O 10/27/17 10/27/17 10/27/17 10/28/17 10/28/17 10/28/17 07:00 15:00 23:00 07:00 15:00 23:00 Intake Total 600 ml 1200 ml 360 ml Balance 600 ml 1200 ml 360 ml Intake Oral 600 ml 1200 ml 360 ml # Voids 3 8 3 # Bowel Movements 2 0 Result Diagram: 10/26/17 0410 10/26/17 0410 Imaging Last Impressions Cervical Spine MRI 10/27/17 0000 Signed Impressions: Service Date/Time: Friday, October 27, 2017 11:44 - CONCLUSION: Prominent multilevel degenerative findings of the cervical spine. Broad-based disc osteophyte complex results in moderate central canal narrowing at C5-6. There is effacement of CSF anteriorly and posteriorly. No evidence of spinal cord deformity. No abnormal spinal cord signal seen. Neural foraminal narrowing at multiple levels. Gil Dugan MD Brain MRI 10/26/17 0817 Signed Impressions: Service Date/Time: Thursday, October 26, 2017 16:24 - CONCLUSION: 1. Senescent changes with mild to moderate periventricular small vessel ischemic white matter demyelination. 2. No acute abnormality. Specifically, no acute infarction, hemorrhage or mass. Jeff Wren MD Chest X-Ray 10/25/17 1800 Signed Impressions: Service Date/Time: October 18:33 - CONCLUSION: 1. No active disease. Minimal scarring in the lungs. Jose Desouza MD Head CT 10/25/17 Signed Impressions: Service Date/Time: October 14:41 - CONCLUSION: 1. No acute intracranial abnormality identified. Royce Venegas MD Hand MRI 10/25/17 Signed Impressions: Service Date/Time: October 20:27 - CONCLUSION: 1. Edema at the thenar eminence and in the subcutaneous soft tissues of the thumb with some questionable marrow edema at the first metacarpophalangeal joint and at the distal phalanx. No fracture or dislocation identified. Jose Desouza MD Foot X-Ray 10/25/17 Signed Impressions: Service Date/Time: October 13:53 - CONCLUSION: No evidence of recent bony injury. Mike Tucker MD Finger X-Ray 10/25/17 Signed Impressions: Service Date/Time: October 13:48 - CONCLUSION: Possible partial subluxation of the 1st MCP joint. No fracture seen. Mike Tucker MD Carotid Artery Ultrasound 10/25/17 Signed Impressions: Service Date/Time: October 18:43 - CONCLUSION: 1. Moderate plaque formation at the carotid bifurcations. No hemodynamically significant stenosis. Jose Desouza MD Ankle X-Ray 10/25/17 Signed Impressions: Service Date/Time: October 13:56 - CONCLUSION: Minimally displaced oblique fracture of the distal fibula. Mike Tucker MD Objective Remarks GENERAL: Alert, NAD. SKIN: Warm and dry. HEAD: Normocephalic. EYES: No scleral icterus. No injection or drainage. NECK: Supple, trachea midline. No JVD or lymphadenopathy. CARDIOVASCULAR: Regular rate and rhythm without murmurs, gallops, or rubs. RESPIRATORY: Breath sounds equal bilaterally. No accessory muscle use. GASTROINTESTINAL: Abdomen soft, non-tender, nondistended. MUSCULOSKELETAL: No cyanosis, or edema. RLE splint present. BACK: Nontender without obvious deformity. No CVA tenderness. Procedures None. A/P Problem List: (1) Fracture of distal fibula ICD Code: S82.839A - Other fracture of upper and lower end of unspecified fibula, initial encounter for closed fracture Status: Acute (2) Subluxation of thumb ICD Code: S63.103A - Unspecified subluxation of unspecified thumb, initial encounter Status: Acute (3) Memory changes ICD Code: R41.3 - Other amnesia Status: Acute Assessment and Plan 77-year-old female with past medical history significant for, HTN, HLD, osteopenia, GERD, thalassemia minor, and laminectomy in February of 2017 who presents to the ER with complaints of right ankle and right thumb pain after falling today at home. Patient reports that she was getting up to make her way to the bathroom when she fell. Fall, Syncope: patient with recurrent falls, questionable syncopal episode -CK 471, continue IV fluids -CT reviewed and unremarkable for any acute findings -CXR and UA unremarkable -Carotid U/S with moderate plaque, no significant stenosis -Neurology evaluated patient, extensive work up done. Memory loss Unsteady gait -Head CT negative, labs unremarkable with the exception of microcytic anemia -TSH 0.689, B12 725. -Consult neurology, appreciate recommendations -Brain MRI unremarkable for any acute findings. EEG normal. MRI c-spine unremarkable for any acute findings. -Currently on Namenda. Neurology recommended outpatient follow up. Right distal fibula fracture Right thumb subluxation -Ankle x-ray reviewed, minimally displaced oblique fracture of the distal fibula. -X-ray of right hand reviewed, possibly partial subluxation of first MCP joint, no fracture. -Splints placed to right ankle and right hand -Hand surgery recommended outpatient follow up, orthopedic surgery also recommended splint for now and follow up in the outpatient setting for any future surgical interventions. -Pain control with [place], IV morphine for breakthrough pain. -PT/OT Hypertension -Continue home dose amlodipine and metoprolol -BP well controlled. Depression -continue home dose bupropion DVT prophylaxis- heparin sq Discharge: Probable discharge on 10/29/2017. Problem Qualifiers (1) Fracture of distal fibula: Qualified Codes: S82.831A - Other fracture of upper and lower end of right fibula, initial encounter for closed fracture (2) Subluxation of thumb: Qualified Codes: S63.101A - Unspecified subluxation of right thumb, initial encounter Stefan Benito DO October 28, 2017 1:37 pm
[2017-10-29] VITALS: PULSE 82
[2017-10-29] MEDS: SODIUM CHLOR 0.9% 1000 ML INJ 1,000 ML IV SCH ×2 (02:00→11:53)
[2017-10-29] MEDS: HEPARIN SODIUM - SQ 10,000 UNITS/ML VIAL SQ SCH ×2 (02:11→08:38)
[2017-10-29 03:49] VITALS: PULSE 73
[2017-10-29 04:10] VITALS: BP 181/89; PULSE 84; RESP 18; TEMP 98.2; O2SAT 95
[2017-10-29] MEDS: oxyCODONE/ACETAMINOPHEN 10 MG/325 MG TAB PO PRN ×3 (04:29→13:07)
[2017-10-29 05:49] VITALS: BP 130/60; PULSE 68
[2017-10-29 07:43] VITALS: BP 134/74; PULSE 80; RESP 18; TEMP 98.2; O2SAT 96
[2017-10-29] MEDS: CALCIUM/VITAMIN D 250 MG/125 U TAB PO SCH (08:36)
[2017-10-29] MEDS: GABAPENTIN 300 MG CAP PO SCH ×2 (08:36→13:07)
[2017-10-29] MEDS: amLODIPine BESYLATE 5 MG TAB PO SCH (08:37)
[2017-10-29] MEDS: DOCUSATE SODIUM 50 MG/SENNA 8.6 MG TAB PO SCH (08:37)
[2017-10-29] MEDS: PANTOPRAZOLE SOD 40 MG DELAYED RELEASE TAB PO SCH (08:37)
[2017-10-29] MEDS: METOPROLOL TARTRATE 100 MG TAB PO SCH (08:37)
[2017-10-29] MEDS: CHOLECALCIFEROL (VIT D3) 5000 UNIT CAP PO SCH (08:37)
[2017-10-29] MEDS: LISINOPRIL 20 MG TAB PO SCH (08:37)
[2017-10-29] MEDS: MEMANTINE HCL 5 MG TAB PO SCH (08:37)
[2017-10-29] MEDS: SODIUM CHLORIDE 0.9% FLUSH 10 ML FLUSH IV FLUSH SCH (08:38)
[2017-10-29] MEDS: buPROPion HCL 150 MG SUSTAINED RELEASE TAB PO SCH (08:38)
[2017-10-29] MEDS: FLUTICASONE PROPIONATE 50 MCG/ACT 16 GM NASAL SPRAY EACH NARE SCH (09:00)
--- NOTE | 2017-10-29 09:12 | PD.ORT.PN ---
Subjective Subjective Remarks Doing well. Still has difficulty ambulating with restrictions. Rehabilitation placement is planned Objective Vitals Vital Signs Date Time Temp Pulse Resp B/P (MAP) Pulse Ox O2 Delivery O2 Flow Rate FiO2 10/29/17 08:57 Room Air 10/29/17 07:43 98.2 80 18 134/74 (94) 96 10/29/17 05:49 68 130/60 (83) 10/29/17 04:10 98.2 84 18 181/89 (119) 95 10/29/17 03:49 73 10/29/17 00:00 82 10/28/17 23:39 97.9 81 17 122/58 (79) 95 10/28/17 20:45 98.0 67 17 125/75 (92) 97 10/28/17 19:54 86 10/28/17 15:49 98.8 72 18 118/60 (79) 97 10/28/17 12:23 98.3 72 18 124/62 (82) 96 10/28/17 09:22 18 I/O 10/28/17 10/28/17 10/28/17 10/29/17 10/29/17 10/29/17 07:00 15:00 23:00 07:00 15:00 23:00 Intake Total 360 ml 1000 ml 480 ml Balance 360 ml 1000 ml 480 ml Intake Oral 360 ml 1000 ml 480 ml # Voids 3 8 2 # Bowel Movements 0 2 0 Result Diagram: 10/26/17 0410 10/26/17 0410 Imaging Last 72 hours Impressions Cervical Spine MRI 10/27/17 0000 Signed Impressions: Service Date/Time: Friday, October 27, 2017 11:44 - CONCLUSION: Prominent multilevel degenerative findings of the cervical spine. Broad-based disc osteophyte complex results in moderate central canal narrowing at C5-6. There is effacement of CSF anteriorly and posteriorly. No evidence of spinal cord deformity. No abnormal spinal cord signal seen. Neural foraminal narrowing at multiple levels. Gil Dugan MD Objective Remarks Right lower extremity: No pain with hip or knee range of motion. Splint intact. She has intact sensation all her toes. She has active movement of all her toes Assessment & Plan Assessment and Plan Right minimally displaced distal fibula fracture Maintain splint We will continue to treat this conservatively. She is able to bear weight on the right foot up to a 50% weightbearing. May use platform walker Follow-up x-rays in 10-14 days Orthopedically cleared to discharge to rehab when bed available Leonard Dhillon Jr. October 29, 2017 09:12
[2017-10-29] MEDS ORDERED: TEMA30CA PO (10:31)
[2017-10-29] MEDS ORDERED: NAME5TAB2 PO (10:31)
[2017-10-29] MEDS ORDERED: PERC10TA27 PO (10:31)
[2017-10-29 11:31] VITALS: BP 120/60; PULSE 67; RESP 18; TEMP 97.1; O2SAT 97
--- NOTE | 2017-10-29 20:19 | HHI.DS ---
Discharge Summary Admission Date October 26, 2017 at 15:50 Discharge Date: October 29, 2017 Admitting Diagnosis Right fibula fracture, right thumb subulxation, memory changes (1) Fracture of distal fibula ICD Code: S82.839A - Other fracture of upper and lower end of unspecified fibula, initial encounter for closed fracture Status: Acute (2) Subluxation of thumb ICD Code: S63.103A - Unspecified subluxation of unspecified thumb, initial encounter Status: Acute (3) Memory changes ICD Code: R41.3 - Other amnesia Status: Acute Procedures None. Brief History - From Admission Written by Alvina Maxwell, acting as scribe for Dr. Gonzalez on 10/25/17 at 18: 14. 77-year-old female with past medical history significant for, HTN, HLD, osteopenia, GERD, thalassemia minor, and laminectomy in February of 2017 who presents to the ER with complaints of right ankle and right thumb pain after falling today at home. Patient reports that she was getting up to make her way to the bathroom when she fell. She denies any dizziness or lightheadedness prior to episode. After she feel she was unable to stand due to the leg pain. Reports that she fell and did not hit her head. Reports pain began shortly after she fell and this was located on her leg and right hand. She tells me that her just went in to a fci recently and things have been kind of emotional, she has been trying to take care of herself. She eats twice a day and has been visiting her as well. She currently lives at home alone. She denies any recent SOB, cough, chest pain, fevers, chills, n/v/d. She has noticed that she has been more forgetful than before and her friends have also mentioned this as well. Apparently daughter has also noticed that patient has been more forgetful and with an unsteady gait. She was evaluated in the ED and x-ray of right hand revealed possible partial subluxation of 1st MCP joint with no fracture. X-ray or right ankle showed minimally displaced oblique fracture of distal fibula. ED has consulted both hand surgery and orthopedic services for further evaluation. She will be admitted to observation unit. CBC/BMP: 10/26/17 0410 10/26/17 0410 Imaging Last Impressions Cervical Spine MRI 10/27/17 0000 Signed Impressions: Service Date/Time: Friday, October 27, 2017 11:44 - CONCLUSION: Prominent multilevel degenerative findings of the cervical spine. Broad-based disc osteophyte complex results in moderate central canal narrowing at C5-6. There is effacement of CSF anteriorly and posteriorly. No evidence of spinal cord deformity. No abnormal spinal cord signal seen. Neural foraminal narrowing at multiple levels. Gil Dugan MD Brain MRI 10/26/17 0817 Signed Impressions: Service Date/Time: Thursday, October 26, 2017 16:24 - CONCLUSION: 1. Senescent changes with mild to moderate periventricular small vessel ischemic white matter demyelination. 2. No acute abnormality. Specifically, no acute infarction, hemorrhage or mass. Jeff Wren MD Chest X-Ray 10/25/17 1800 Signed Impressions: Service Date/Time: October 18:33 - CONCLUSION: 1. No active disease. Minimal scarring in the lungs. Jose Desouza MD Head CT 10/25/17 0000 Signed Impressions: Service Date/Time: October 14:41 - CONCLUSION: 1. No acute intracranial abnormality identified. Royce Venegas MD Hand MRI 10/25/17 0000 Signed Impressions: Service Date/Time: October 20:27 - CONCLUSION: 1. Edema at the thenar eminence and in the subcutaneous soft tissues of the thumb with some questionable marrow edema at the first metacarpophalangeal joint and at the distal phalanx. No fracture or dislocation identified. Jose Desouza MD Foot X-Ray 10/25/17 0000 Signed Impressions: Service Date/Time: October 13:53 - CONCLUSION: No evidence of recent bony injury. Mike Tucker MD Finger X-Ray 10/25/17 0000 Signed Impressions: Service Date/Time: October 13:48 - CONCLUSION: Possible partial subluxation of the 1st MCP joint. No fracture seen. Mike Tucker MD Carotid Artery Ultrasound 10/25/17 0000 Signed Impressions: Service Date/Time: October 18:43 - CONCLUSION: 1. Moderate plaque formation at the carotid bifurcations. No hemodynamically significant stenosis. Jose Desouza MD Ankle X-Ray 10/25/17 0000 Signed Impressions: Service Date/Time: October 13:56 - CONCLUSION: Minimally displaced oblique fracture of the distal fibula. Mike Tucker MD PE at Discharge GENERAL: Alert, NAD. SKIN: Warm and dry. HEAD: Normocephalic. EYES: No scleral icterus. No injection or drainage. NECK: Supple, trachea midline. No JVD or lymphadenopathy. CARDIOVASCULAR: Regular rate and rhythm without murmurs, gallops, or rubs. RESPIRATORY: Breath sounds equal bilaterally. No accessory muscle use. GASTROINTESTINAL: Abdomen soft, non-tender, nondistended. MUSCULOSKELETAL: No cyanosis, or edema. RLE splint present. BACK: Nontender without obvious deformity. No CVA tenderness. Pt update on day of discharge Patient is doing well. Sitting in her chair. No acute concerns. Hospital Course 77-year-old female with past medical history significant for, HTN, HLD, osteopenia, GERD, thalassemia minor, and laminectomy in February of 2017 who presents to the ER with complaints of right ankle and right thumb pain after falling today at home. Patient reports that she was getting up to make her way to the bathroom when she fell. Fall, Syncope: patient with recurrent falls, questionable syncopal episode -CK 471, continue IV fluids -CT reviewed and unremarkable for any acute findings -CXR and UA unremarkable -Carotid U/S with moderate plaque, no significant stenosis -Neurology evaluated patient, extensive work up done. Memory loss Unsteady gait -Head CT negative, labs unremarkable with the exception of microcytic anemia -TSH 0.689, B12 725. -Consult neurology, appreciate recommendations -Brain MRI unremarkable for any acute findings. EEG normal. MRI c-spine unremarkable for any acute findings. -Currently on Namenda. Neurology recommended outpatient follow up. Right distal fibula fracture Right thumb subluxation -Ankle x-ray reviewed, minimally displaced oblique fracture of the distal fibula. -X-ray of right hand reviewed, possibly partial subluxation of first MCP joint, no fracture. -Splints placed to right ankle and right hand -Hand surgery recommended outpatient follow up, orthopedic surgery also recommended splint for now and follow up in the outpatient setting for any future surgical interventions. -Pain control with [place], IV morphine for breakthrough pain. -PT/OT Hypertension -Continue home dose amlodipine and metoprolol -BP well controlled. Depression -continue home dose bupropion DVT prophylaxis- heparin sq Pt Condition on Discharge: Good Discharge Disposition: Discharge to SNF Discharge Time: <= 30 minutes Discharge Instructions DIET: Follow Instructions for: Heart Healthy Diet Activities you can perform: Regular-No Restrictions Follow up Referrals: Hand Surgery - 2 Weeks with Kelly Monge MD Orthopedics - 10 Days with Ollie Lincoln MD New Medications: Oxycodone-Acetaminophen (Percocet) 10-325 mg Tab 1 TAB PO Q6H PRN for PAIN, #20 TAB 0 Refills Memantine (Namenda) 5 Mg Tab 5 MG PO DAILY for memory for 30 Days, #30 TAB Give 5mg Qday until 11/02/2017 THEN 5mg BID from 11/02/2017 to 11/09/2017 THEN 10mg BID starting 11/09/2017. Continued Medications: Amlodipine (Norvasc) 5 Mg Tab 5 MG PO DAILY for Blood Pressure Management, #30 TAB 0 Refills Benazepril (Benazepril) 40 Mg Tab 40 MG PO DAILY for Blood Pressure Management, #30 TAB 0 Refills Bupropion HCl ER 24 HR (Bupropion HCl ER 24 HR) 300 Mg Tab 300 MG PO DAILY for Control Depression, #30 TAB 0 Refills Calcium Carbonate/Vitamin D3 (Calcium 600 + Vit D Tablet) 1 Each Tablet 1 TAB PO DAILY, #30 Cholecalciferol (Vitamin D3) 1,000 Unit Tab 5000 UNITS PO DAILY for Nutritional Supplement, #1 BOTTLE 0 Refills Denosumab Inj (Prolia Inj) 60 Mg/Ml Inj 60 MG SQ Q180D, VIAL 0 Refills Estrogens, Conjugated (Premarin) 0.625 Mg Tab 0.625 MG PO WEEKLY for Estrogen Supplements, #30 TAB 0 Refills Fluticasone Nasal [place] (Fluticasone Nasal [place]) 50 Mcg/Act Naspr 50 MCG EACH NARE BID for Allergy Management, #1 BOTTLE 0 Refills 50 mcg/spray Gabapentin (Gabapentin) 600 Mg Tab 600 MG PO TID, #90 TAB 0 Refills Metoprolol Tartrate (Lopressor) 100 Mg Tab 100 MG PO Q12HR, #60 TAB Rabeprazole (Rabeprazole) 20 Mg Tab 20 MG PO DAILY for Reflux, #30 TAB 0 Refills Temazepam (Temazepam) 30 Mg Cap 30 MG PO HS PRN for INSOMNIA, #30 CAP 0 Refills (This prescription has been renewed) Discontinued Medications: Cyclobenzaprine (Flexeril) 10 Mg Tab 10 MG PO Q8H PRN for MUSCLE SPASM, #60 TAB Oxycodone-Acetaminophen (Percocet) 10-325 mg Tab 1-2 TAB PO Q4H PRN for PAIN, #120 TAB 0 Refills Stefan Benito DO October 29, 2017 20:19
[2017-10-31 08:21] LABS: METHYLMALONIC ACID 0.14 nmol/mL (<=0.40)
[2017-11-02] MEDS ORDERED: MEMANTINE HCL 5 MG TAB PO SCH (09:00)
[2017-11-09] MEDS ORDERED: MEMANTINE HCL 10 MG TAB PO SCH (09:00)
== END 2017-10-29 14:04 | DRG 563 ==
LOC: NEPD 13:15 → NEDA 16:13 → NEPGCP 18:55 → OBSVTOIN 10-26 15:50 → N06B 10-26 20:16
PROVIDERS: ADMIT Hospitalist; ATTEND Hospitalist
DX: S82.431A Displaced oblique fracture of shaft of right fibula, initial encounter for closed fracture (principal); E86.0 Dehydration; I10 Essential (primary) hypertension; S63.111A Subluxation of metacarpophalangeal joint of right thumb, initial encounter; D56.3 Thalassemia minor; E55.9 Vitamin D deficiency, unspecified; D50.9 Iron deficiency anemia, unspecified; E78.5 Hyperlipidemia, unspecified; K21.9 Gastro-esophageal reflux disease without esophagitis; W01.0XXA Fall on same level from slipping, tripping and stumbling without subsequent striking against object, initial encounter; R55 Syncope and collapse; F32.9 Major depressive disorder, single episode, unspecified; R41.3 Other amnesia; M85.80 Other specified disorders of bone density and structure, unspecified site; M19.90 Unspecified osteoarthritis, unspecified site; M35.3 Polymyalgia rheumatica; R26.81 Unsteadiness on feet; J32.9 Chronic sinusitis, unspecified; R29.6 Repeated falls; Y92.002 Bathroom of unspecified non-institutional (private) residence as the place of occurrence of the external cause; Z87.442 Personal history of urinary calculi
CPT/HCPCS: 70450; 70553; 71045; 72141; 73140; 73218; 73610; 73630; 80048; 80053; 81001; 82140; 82550; 82552; 82607; 82746; 83735; 83921; 84425; 84443; 84484; 85007; 85027; 85610; 85652; 85730; 86038; 86592; 93880; 95819; 96360; 96372; A9579; G0378; G8987-GP; G8988-GP; J1644; J2060; J7030; J7040; L3808